=== PATIENT | female | born 1940 | race Caucasian/White ===

== ENCOUNTER → 2018-01-01 11:19 | Outpatient (CLI) | payer MEDICARE, SELFPAY ==
[2018-01-01 13:02] LABS: Add Manual Diff / Slide Review NO; Basophils Percent Auto 1.4 % (0-2); Eosinophils Percent Auto 2.9 % (2-4); Hematocrit 44.9 % (36-46); Hemoglobin 15.3 g/dL (12.0-16.0); Lymphocytes Percent Auto 21.1 % (25-40); Mean Corpuscular Hemoglobin 31.9 PG (26-34); Mean Corpuscular Volume 93.8 fL (80-100); Monocytes Percent Auto 7.4 % (3-14); Neutrophils Absolute Auto 4600 /uL (3000-5900); Neutrophils Percent Auto 67.2 % (50-75); Platelet Count 214 X10^3/uL (150-400); Red Blood Cell Count 4.79 X10^6/uL (4.0-5.2); Red Cell Distribution Width 14.6 % (11.6-14.8); White Blood Cell Count 6.8 X10^3/uL (4.5-11.0)
[2018-01-01 13:10] LABS: Alanine Aminotransferase 23 IU/L (9-52); Albumin Globulin Ratio 1.3 (1.0-2.8); Alkaline Phosphatase 72 U/L (38-126); Aspartate Aminotransferase 22 IU/L (14-36); Bilirubin Total 0.7 mg/dL (0.2-1.3); Blood Urea Nitrogen 22 mg/dL (7-17); Calcium 9.4 mg/dL (8.4-10.2); Carbon Dioxide 29 mmol/L (22-32); Chloride 104 mmol/L (98-107); Cholesterol 98 mg/dL (140-199); Estimated Glomerular Filt Rate 48.2 mL/min (>60); Globulin 3.1 g/dL (1.7-4.1); Glucose 88 mg/dL (80-110); HDL Cholesterol 56 mg/dL (40-60); HEMOLYSIS < 15 (0-50); LDL Cholesterol Calculated 23 mg/dL (<100); Sodium 143 mmol/L (137-145); Total Protein 7.1 g/dL (6.3-8.2); Triglycerides 93 mg/dL (35-150)
[2018-01-01 13:16] LABS: Potassium 5.6 mmol/L (3.4-5.1)
[2018-01-01 13:38] LABS: TSH w/ Reflex to FT4 3.33 uIU/mL (0.47-4.68)
== END ==
PROVIDERS: PCP Family Medicine; Visit Provider Family Medicine
DX: E03.9 Hypothyroidism, unspecified (principal); E87.5 Hyperkalemia; I10 Essential (primary) hypertension; Z13.220 Encounter for screening for lipoid disorders
CPT/HCPCS: 36415; 80053; 80061; 84443; 85025

== ENCOUNTER → 2018-03-04 12:40 | Outpatient (CLI) | payer MEDICARE, SELFPAY ==
[2018-03-04 15:27] LABS: Appearance Urine UA SL CLOUDY; Bilirubin Urine UA NEGATIVE (NEGATIVE); Color Urine UA YELLOW; Glucose Urine UA NEGATIVE (Normal); Ketones Urine UA NEGATIVE (NEGATIVE); Leukocyte Esterase Urine UA 2+ (NEGATIVE); Nitrite Urine UA NEGATIVE (Negative); Occult Blood Urine UA 3+ (Negative); Protein Urine UA NEGATIVE (Negative); Specific Gravity Urine UA 1.025 (1.000-1.035); Urobilinogen Urine UA 0.2 E.U./dL (0.2)
[2018-03-04 15:48] LABS: RBC Urine 1-5/HPF (0-5/HPF); Squamous Epithelial Cell Urine 1-5 /HPF; WBC Urine 30-100/HPF (0-5/HPF)
[2018-03-04 15:49] LABS: Amorphous Sediment Urine 1+; Bacteria Urine Many (>30); Culture Indicated Urine Specimen Cultured; Mucus Urine 1+ (Negative)
== END ==
PROVIDERS: Family Provider Family Medicine; PCP Family Medicine; Visit Provider Urology
DX: N39.0 Urinary tract infection, site not specified (principal)
CPT/HCPCS: 81001; 87077; 87086; 87186

== ENCOUNTER → 2018-03-10 08:44 | Outpatient (CLI) | payer MEDICARE, SELFPAY ==
--- NOTE | 2018-03-10 08:48 | DI.MG.S_ITS ---
BILATERAL DIGITAL SCREENING MAMMOGRAM 3D/2D WITH CAD POST LUMPECTOMY: 03/10/2018 CLINICAL: Routine screening. Personal history of bilateral breast cancer. Comparison is made to exams dated: 11/14/2016 mammogram, 06/07/2015 mammogram, and 04/26/2014 mammogram - [facility]. The tissue of both breasts is heterogeneously dense. This may lower the sensitivity of mammography. Current study was also evaluated with a Computer Aided Detection (CAD) system. There are benign post operative findings in both breasts. There also are benign calcifications in both breasts. No significant masses, calcifications, or other findings are seen in either breast. There has been no significant interval change. IMPRESSION: There is no mammographic evidence of malignancy. A 1 year screening mammogram is recommended. This exam was interpreted at Station ID: [id number]. NOTE: For mammograms, a report in lay terms will be sent to the patient. Approximately 15% of breast malignancies will not be visualized mammographically. In the management of a palpable breast mass, a negative mammogram must not discourage biopsy of a clinically suspicious lesion. Electronically Signed By: Jase montgomery/karley:03/10/2018 20:14:28 copy to: ELIZABETH URBINA letter sent: Normal Exam ACR BI-RADS Category 2: Benign Finding(s) 3342F
== END ==
PROVIDERS: PCP Family Medicine; Visit Provider Family Medicine
DX: Z12.31 Encounter for screening mammogram for malignant neoplasm of breast (principal); Z85.3 Personal history of malignant neoplasm of breast
CPT/HCPCS: 77063; 77067

== ENCOUNTER 2018-06-19 10:13 | Emergency (ER) | payer MEDICARE, SELFPAY ==
[2018-06-19 10:15] VITALS: BP 152/98; PULSE 78; RESP 14; TEMP 36.1; O2SAT 95
--- NOTE | 2018-06-19 10:35 | DI.RAD.S_ITS ---
PROCEDURE: XR HIP W PEL IF DONE RT 2V INDICATIONS: fall yesterday, directly unto bottom TECHNIQUE: AP pelvis with lateral view(s) of the right hip(s). COMPARISON: None. FINDINGS: Bones: No fractures or dislocations. Pelvic ring appears intact. No suspicious bony lesions. Soft tissues: The visualized bowel gas pattern is normal. No suspicious soft tissue calcifications. IMPRESSION: No fracture or dislocation. If clinical symptoms persist or clinical suspicion for pathology is high, advanced imaging such as CT or MRI is suggested for further evaluation. Dictated by: Chelle Nagy M.D. on 06/19/2018 at 11:22 Approved by: Chelle Nagy M.D. on 06/19/2018 at 11:29
--- NOTE | 2018-06-19 10:37 | ED.FALL ---
HPI - Fall General Chief Complaint: Fall Stated Complaint: fell, may have broke something Time Seen by Provider: 06/19/18 10:35 Source: patient and family ( ) Mode of arrival: wheelchair History of Present Illness HPI Narrative: this is a 70-year-old female comes to emergency department with complaint of fall yesterday evening. Patient states she was taking bunch of close, she feels like she tripped on a piece of clothing and fell backwards on her buttocks and slid down the stairs about 4 stairs to the landing. Patient states she sat there for about 30 min she had pain in her low back and a little bit more on the right than the left. She was unable to get up after some time. She continues to pain particularly with movement. She is most comfortable lying reclined in her recliner but getting up trying to get in and out of bed, trying to get to a standing or sitting position or from lying to standing is quite painful and difficult. She took Tylenol her last dose was at 4:00 a.m. ago she continues to have pain. She is concerned she may have injured something. She does take Pradaxa denies hitting her head, denies any neck or upper back pain. She denies any pain radiating into her legs, no numbness or tingling. She has chronic urinary incontinence. She sees Urology for this. She denies any chest pain or shortness of breath no nausea no vomiting no other GI symptoms. She has not had any fecal incontinence. MD complaint: fall Related Data Home Medications Medication Instructions Recorded Confirmed multivitamin with minerals 1 tab PO DAILY #0 11/30/07 06/19/18 acetaminophen 500 mg capsule 500 mg PO Q4-6H PRN 01/12/18 06/19/18 turmeric root extract 500 mg 500 mg PO DAILY 01/12/18 06/19/18 capsule Manuka Honey 550 ea PO BID 06/19/18 06/19/18 citalopram [Celexa] 40 mg PO QPM 06/19/18 06/19/18 dabigatran etexilate [Pradaxa] 150 mg PO QPM 06/19/18 06/19/18 gabapentin [Neurontin] 1 dose PO SEE INSTRUCTIONS 06/19/18 06/19/18 levothyroxine 88 mcg PO DAILY 06/19/18 06/19/18 lorazepam 1 mg PO BEDTIME 06/19/18 06/19/18 metoprolol succinate [Toprol XL] 50 mg PO DAILY 06/19/18 06/19/18 nitrofurantoin macrocrystal 50 mg PO DAILY 06/19/18 06/19/18 Previous Rx's Medication Instructions Recorded nitrofurantoin monohyd/m-cryst 100 mg PO Q12H #10 cap 06/19/18 [Macrobid] oxycodone 5 mg PO Q4-6H PRN #20 tab 06/19/18 Allergies Allergy/AdvReac Type Severity Reaction Status Date / Time bacitracin [BACITRACIN] Allergy Mild HIVES Verified 01/12/18 13:46 ciprofloxacin [CIPROFLOXACIN] Allergy Mild JOINT PAIN Verified 01/12/18 13:46 neomycin [NEOMYCIN] Allergy Mild HIVES Verified 01/12/18 13:46 polymyxin B [POLYMYXIN B] Allergy Mild HIVES Verified 01/12/18 13:46 tramadol [TRAMADOL] AdvReac Intermediate sweaty, Verified 01/12/18 13:46 hot and nauseous Review of Systems Review of Systems ROS Unobtainable: All systems reviewed & are unremarkable except as noted in HPI and below Constitutional Denies chills, Denies fever(s), Denies lethargy, Denies weakness and Denies other (head injury) ENT Ears, Nose, Mouth, and Throat: Denies neck pain Cardiovascular Denies chest pain, Denies irregular heart rhythm, Denies lightheadedness, Denies palpitations, Denies dyspnea, Denies dyspnea on exertion and Denies orthopnea Respiratory Denies cough, Denies pain on inspiration, Denies pain with cough, Denies dyspnea, Denies dyspnea on exertion and Denies wheezing Gastrointestinal Gastrointestinal: Denies abdominal pain, Denies change in bowel habits, Denies diarrhea, Denies nausea and Denies vomiting Genitourinary Denies urinary frequency, Denies difficulty voiding, Denies dysuria, Reports urinary incontinence (chronic), Denies urinary hesitancy and Denies urinary urgency Musculoskeletal Reports as per HPI, Reports back pain, Reports arthralgias (right hip, mild), Reports limited range of motion, Denies neck pain, Denies numbness, Denies radiating pain into limb and Denies tingling Integumentary/Breasts Denies erythema and Denies unusual bruising Neurologic Denies numbness, Denies tingling and Denies weakness Endocrine Denies palpitations Allergic/Immunologic Denies wheezing Exam Narrative Exam Narrative: GEN: Patient appears in moderate distress. HEAD: No evidence of trauma, no raccoon/Laws sign. NECK: Nontender, painless range of motion, trachea midline NegativeNexus criteria, no mid-line tenderness, distracting injury, altered mental status, neuro deficit, recent EtOH. EYES: PERRLA, EOMI ENT: External inspection normal, trachea is midline RESP: Chest is nontender and has symmetric movement, no ecchymosis, breath sounds are normal no crackles, wheezes or rales CVS: Heart sounds are normal, no murmur noted, No JVD. ABG/GI: Nontender, soft, normal bowel sounds, no distention, no organomegaly, pelvic rock is negative. Hernia right upper abdomen and lower abdomen, easily reducible but immediately returns. GENIT, RECTAL: Normal external inspection, normal rectal tone, [prostate is in normal position or no vaginal bleeding] NEURO: Oriented AOx3, neuro is grossly intact, sensation and motor is normal all 4 extremities moving, cranial nerves II through XII are intact, GCS is 15 PSYCH: Normal mood and affect SKIN: Intact, warm and dry, no crepitus and without decubitus BACK: No CVA tenderness, no vertebral tenderness, unable to reproduce pain with palpation, no step-off's, no crepitus EXT: Atraumatic, hips right SI/hip mildly tendern to pain, no pedal edema, normal color and temperature, normal range of motion of extremities with normal tendon exam, 2+ pulses in all four extremities, patient is able to weightbare. 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 Social History Smoking Status: Never smoker Family History Mother Mental health problem Depression Alzheimer's disease Brother Diabetes mellitus Father Lung cancer Sister Brain cancer Family/Other Bipolar disorder Grandmother No problems noted. Social History marital status: household members: spouse lives independently: Yes Smoking Status: Never smoker Scores GCS [place] coma scale eye opening: Spontaneous Sonya coma scale verbal response: Orientated Sonya coma scale motor response: Obey commands [place] coma scale total score: 15 Course Orders Ordered: ED Orders 06/19/18 10:35 XR hip w pel if done RT 2V Stat 06/19/18 10:40 CT lumbar spine wo con Stat 06/19/18 11:07 Basic Metabolic Panel Stat Complete Blood Count AUTO DIFF Stat 06/19/18 11:40 MR lumbar spine wo con Stat 06/19/18 12:56 Urine Culture Stat Urine Microscopic Stat Discontinued Medications Hydromorphone HCl (Dilaudid) 0.5 mg IV NOW ONE Stop: 06/19/18 11:50 Last Admin: 06/19/18 11:53 Dose: 0.5 mg Oxycodone/Acetaminophen (Percocet 5/325) 2 tab PO NOW ONE Stop: 06/19/18 10:36 Last Admin: 06/19/18 10:58 Dose: 2 tab Vital Signs - 8 hr 06/19/18 10:15 Temperature 97 F L Pulse Rate 78 Respiratory Rate 14 Blood Pressure 152/98 H Pulse Oximetry 95 MDM - Fall Lab Data Attestation: I reviewed the patient's lab results. Result diagrams: 06/19/18 11:07 03/15/19 11:07 Lab Results 06/19/18 06/19/18 06/19/18 Range/Units 11:07 11:07 12:56 WBC 9.2 (4.5-11.0) X10^3/uL RBC 4.70 (4.0-5.2) X10^6/uL Hgb 14.8 (12.0-16.0) g/dL Hct 44.5 (36-46) % MCV 94.5 (80-100) fL MCH 31.6 (26-34) PG MCHC 33.4 (30-36) % RDW 14.9 H (11.6-14.8) % Plt Count 182 (150-400) X10^3/uL Neut % (Auto) 84.9 H (50-75) % Lymph % (Auto) 6.5 L (25-40) % Roberts % (Auto) 5.0 (3-14) % Eos % (Auto) 2.5 (2-4) % Baso % (Auto) 1.1 (0-2) % Neut # (Auto) 7800 H (9193-6552) /uL Lymph # (Auto) 600 L (1708-7153) /uL Roberts # (Auto) 500 (0-900) /uL Eos # (Auto) 200 (0-450) /uL Baso # (Auto) 100 (0-100) /uL Sodium 138 (137-145) mmol/L Potassium 4.6 (3.4-5.1) mmol/L Chloride 104 (98-107) mmol/L Carbon Dioxide 25 (22-32) mmol/L BUN 18 H (7-17) mg/dL Creatinine 0.90 (0.52-1.04) mg/dL Estimated GFR > 60.0 (>60) mL/min BUN/Creatinine Ratio 20.0 (6-22) Glucose 102 (80-110) mg/dL Calcium 9.1 (8.4-10.2) mg/dL Urine RBC 10-30/hpf H (0-5/HPF) Urine WBC 10-30/hpf H (0-5/HPF) Urine Bacteria Many (>30) H (None) Ur Culture Indicated? Specimen cultured Urine Dip Bedside Urine Glucose Negative Bedside Urine Bilirubin - Negative Bedside Urine Ketone - Negative Urine Specific [place] 1.025 Bedside Urine Occult Blood +++ Bedside Urine pH 5.5 Bedside Urine Protein + 30 Bedside Urine Urobilinogen - Negative Bedside Urine Nitrite + Positive Bedside Urine Leukocytes +++ [address] Lspine: Radiologist's impression: [address] [address] [address] Scan Report Signed Patient: Riley Torres#: [id number] : 1940Acct:[id number] Age/Sex: 78 / FDate of Service: 06/19/18 Loc: ED Accession Number: [id number] Procedure: CT lumbar spine wo con Ordering Provider: Alyson Hurt D.O. PROCEDURE: CT LUMBAR SPINE WO CON INDICATIONS: fall, low back pain, right hip pain TECHNIQUE: Noncontrast 3 mm thick sections acquired from the T12 level to the sacrum. Sagittal and coronal reformats were constructed. For radiation dose reduction, the following was used: automated exposure control. COMPARISON: None. FINDINGS: Image quality: Excellent. Bones: There is normal bony alignment. Acute appearing L2 compression fracture noted. L2 compression fracture results in approximately 25% loss of normal vertebral body height. No retropulsed fragments or kyphosis associated with the L2 compression fracture. No suspicious lytic or blastic bony lesions. Multilevel degenerative disc disease and facet arthropathy are noted. No pars defects. Soft tissues: No retroperitoneal masses or hematomas. Visualized aorta is normal in caliber. IMPRESSION: 1. Acute L2 compression fracture. 2. Multilevel degenerative disc disease and facet arthropathy. If there is continued clinical concern for pathology including nerve root impingement, MRI of the lumbar spine should be considered for further evaluation. Dictated by: Jessica Peralta MD, PhD on 06/19/2018 at 10:59 Approved by: Jessica Peralta MD, PhD on 06/19/2018 at 11:10 Hip xray: Radiologist's impression: [address] [address] XRay Report Signed Patient: Riley Torres#: [id number] : 1940Acct:[id number] Age/Sex: 78 / FDate of Service: 06/19/18 Loc: ED Accession Number: [id number] Procedure: XR hip w pel if done RT 2V Ordering Provider: Alyson Hurt D.O. PROCEDURE: XR HIP W PEL IF DONE RT 2V INDICATIONS: fall yesterday, directly unto bottom TECHNIQUE: AP pelvis with lateral view(s) of the right hip(s). COMPARISON: None. FINDINGS: Bones: No fractures or dislocations. Pelvic ring appears intact. No suspicious bony lesions. Soft tissues: The visualized bowel gas pattern is normal. No suspicious soft tissue calcifications. IMPRESSION: No fracture or dislocation. If clinical symptoms persist or clinical suspicion for pathology is high, advanced imaging such as CT or MRI is suggested for further evaluation. Dictated by: Chelle Nagy M.D. on 06/19/2018 at 11:22 Approved by: Chelle Nagy M.D. on 06/19/2018 at 11:29 lspine MRI: Radiologist's impression: [facility] DATE TYPE STATUS AUTHOR Hx 06/19/18 11:40 Jessica Peralta 06/19/18 10:40 Jessica Peralta 06/19/18 10:35 Jonny Nagy 03/10/18 08:48 Jase Matthews Hilda 78, 1940 REG ER, ED.LOC - Main ED: R06 Fall Search Chart NF - Not included in interaction checking HIVES JOINT PAIN HIVES HIVES sweaty, hot and nauseous ONSET 10/19/10 10/19/10 10/19/10 05/09/14 05/09/14 05/09/14 05/09/14 06/10/14 06/10/14 04/05/16 01/29/17 01/29/17 01/29/17 Today 10:15 Jessenia Torres 78 F 1940 [place] [address] Magnetic Resonance Report Signed Patient: Riley Torres#: [id number] : 1940Acct:[id number] Age/Sex: 78 / FDate of Service: 06/19/18 Loc: ED Accession Number: [id number] Procedure: MR lumbar spine wo con Ordering Provider: Alyson Hurt D.O. PROCEDURE: MR LUMBAR SPINE WO CON INDICATIONS: L2 compression fx. hx urinary incontinence, maybe worse TECHNIQUE: Noncontrast sagittal T1 spin echo and T2 fast echo, sagittal STIR, axial T1 and T2 fast spin echo through the lumbar spine. In cases with scoliosis, additional coronal T2 fast spin echo may be performed. COMPARISON: None. FINDINGS: Image quality: Excellent. Alignment and Curvature: There is normal bony alignment and curvature. Bone Marrow: Loss of height noted in the L2 vertebral body compatible with known compression fracture. There is increased T2 signal in marrow space the L2 vertebral body indicating compression fracture is acute/subacute. L2 compression fracture results in approximately 25% loss of normal anterior vertebral body height. No kyphosis or retropulsion fragments are associated with the L2 compression fracture. Spinal Cord: Conus medullaris terminates at the T12-L1 disc level. Visualized cord demonstrates normal signal and size. Paraspinous Soft Tissues: No paravertebral masses. L1-L2: Loss of disc signal. Mild diffuse disc bulge and mild bilateral facet hypertrophy. Mild to moderate narrowing of the central canal. Mild right and moderate left neural foraminal narrowing. No neural impingement. L2-L3: Loss of disc signal. Mild, diffuse disc bulge. Moderate bilateral facet hypertrophy. Moderate ligamentum flavum hypertrophy. Moderate narrowing of the central canal. Mild bilateral neural foraminal narrowing. No neural impingement. L3-L4: Loss of the signal. Minimal, diffuse disc bulge. [id number] facet hypertrophy. Moderate ligamentum flavum hypertrophy. Moderate narrowing of the central canal. Moderate bilateral neural foraminal narrowing. No neural impingement. L4-L5: Loss of the signal. Mild to moderate bilateral facet hypertrophy. Moderate narrowing of the central canal. Moderate to severe right and moderate left neural foraminal narrowing slight flattened deformity exiting right L4 nerve root. L5-S1: Loss of the signal. Mild, diffuse disc bulge. Mild bilateral facet hypertrophy. Mild central canal. Moderate right and mild left neural foraminal narrowing. No neural impingement. IMPRESSION: 1. Acute L2 compression fracture. 2. Multilevel degenerative disease. 3. Multilevel facet arthropathy. 4. Moderate L2-L3, L3-L4 and L4-L5 central canal narrowing. Mild to moderate L1-L2 central canal narrowing. Mild L5-S1 central. 5. Moderate to severe right and moderate left L4-L5 neural foraminal narrowing. Moderate bilateral L3-L4 neural foraminal narrowing. Moderate right and mild left L5-S1 neural foraminal narrowing. Mild right and moderate left L1-L2 neural foraminal narrowing. Mild bilateral L2-L3 neuroforaminal narrowing. Dictated by: Jessica Peralta MD, PhD on 06/19/2018 at 12:51 Approved by: Jessica Peralta MD, PhD on 06/19/2018 at 13:01 [facility] Narrative Medical decision making narrative: Patient comes with complaint back pain. She has had chronic urinary incontinence but it has been worse recently. Patient does not have any bony tenderness but with her discomfort CT L-spine was ordered which showed an L2 compression fracture. With patient's recent urinary incontinence is a little bit difficult to be able to evaluate if she has any spinal cord or nerve impingement so MRI was ordered. She has some stenosis [id number]. patient also has some moderate to severe neuroforaminal narrowing L4-L5 as well as moderate L3-L4 and mild to moderate L1-L2. Patient has not had chronic back issues or weakness or numbness in her extremities, no saddle anesthesia or similar symptoms in the past so my suspicion that this is the cause her issues with a positive urine for nitrates and leukocyte esterase is less likely. Discussed with patient plan to treat her for UTI with Macrobid which she states she has responded to well in past have her follow up Friday with her primary care patient did have some improvement with Percocet with so we discussed trying oxycodone so she can take it a little bit more frequently if needed as she states she has had some issues with tolerance in the past but may also max out on her Tylenol. Patient's pain here has been much improved. Discharge Plan Departure Patient Disposition: Home Clinical Impression: Closed compression fracture of L2 vertebra, Acute UTI Discharge Date/Time: 06/19/18 14:10 Interventions: ED Discharge Assessment Last Done: 06/19/18 14:09 Instructions: How to Prevent Falls Activity Restrictions/Additional Instructions: Follow up with Dr. Ramos, call for an appointment for Friday morning. continue home medications as prescribed. Take Macrobid twice daily until gone. Take oxycodone you may take 1-2 tablets every 4-6 hours as needed for back pain. You may also take Tylenol up to a 1000 mg every 8 hr or 3000 mg total any 24 hr. Take a stool softener each time you take your pain medication to prevent constipation. Return to the emergency department for fevers greater than 100.4, rapidly worsening back pain, stool incontinence, worsening urinary incontinence, new weakness, numbness or pain radiating down her legs or other new or concerning symptoms. Prescriptions: New oxycodone 5 mg tablet 5 mg PO Q4-6H PRN (Reason: pain) Qty: 20 RF: 0 nitrofurantoin monohyd/m-cryst [Macrobid] 100 mg capsule 100 mg PO Q12H Qty: 10 RF: 0 No Action multivitamin with minerals Tablet 1 tab PO DAILY Qty: 0 RF: 0 turmeric root extract 500 mg capsule 500 mg PO DAILY RF: 0 acetaminophen 500 mg capsule 500 mg PO Q4-6H PRN (Reason: PAIN) RF: 0 nitrofurantoin macrocrystal 50 mg capsule 50 mg PO DAILY RF: 0 levothyroxine 88 mcg tablet 88 mcg PO DAILY RF: 0 Pradaxa 150 mg capsule 150 mg PO QPM RF: 0 citalopram [Celexa] 40 mg tablet 40 mg PO QPM RF: 0 metoprolol succinate [Toprol XL] 50 mg tablet extended release 24 hr 50 mg PO DAILY RF: 0 lorazepam 1 mg tablet 1 mg PO BEDTIME RF: 0 Manuka Honey 550 ea PO BID RF: 0 gabapentin [Neurontin] 300 mg capsule 1 dose PO SEE INSTRUCTIONS RF: 0 Referrals: Delon Heck MD [Physician] - Renetta Ramos DO [Primary Care Provider] -
--- NOTE | 2018-06-19 10:41 | ED_ITS ---
HPI - Fall General Chief Complaint: Fall Stated Complaint: fell, may have broke something Time Seen by Provider: 06/19/18 10:35 Source: patient and family ( ) Mode of arrival: wheelchair History of Present Illness HPI Narrative: this is a 70-year-old female comes to emergency department with complaint of fall yesterday evening. Patient states she was taking bunch of close, she feels like she tripped on a piece of clothing and fell backwards on her buttocks and slid down the stairs about 4 stairs to the landing. Patient states she sat there for about 30 min she had pain in her low back and a little bit more on the right than the left. She was unable to get up after some time. She continues to pain particularly with movement. She is most comfortable lying reclined in her recliner but getting up trying to get in and out of bed, trying to get to a standing or sitting position or from lying to standing is quite painful and difficult. She took Tylenol her last dose was at 4:00 a.m. ago she continues to have pain. She is concerned she may have injured something. She does take Pradaxa denies hitting her head, denies any neck or upper back pain. She denies any pain radiating into her legs, no numbness or tingling. She has chronic urinary incontinence. She sees Urology for this. She denies any chest pain or shortness of breath no nausea no vomiting no other GI symptoms. She has not had any fecal incontinence. MD complaint: fall Related Data Home Medications Medication Instructions Recorded Confirmed multivitamin with minerals 1 tab PO DAILY #0 11/30/07 06/19/18 acetaminophen 500 mg capsule 500 mg PO Q4-6H PRN 01/12/18 06/19/18 turmeric root extract 500 mg 500 mg PO DAILY 01/12/18 06/19/18 capsule Manuka Honey 550 ea PO BID 06/19/18 06/19/18 citalopram [Celexa] 40 mg PO QPM 06/19/18 06/19/18 dabigatran etexilate [Pradaxa] 150 mg PO QPM 06/19/18 06/19/18 gabapentin [Neurontin] 1 dose PO SEE INSTRUCTIONS 06/19/18 06/19/18 levothyroxine 88 mcg PO DAILY 06/19/18 06/19/18 lorazepam 1 mg PO BEDTIME 06/19/18 06/19/18 metoprolol succinate [Toprol XL] 50 mg PO DAILY 06/19/18 06/19/18 nitrofurantoin macrocrystal 50 mg PO DAILY 06/19/18 06/19/18 Previous Rx's Medication Instructions Recorded nitrofurantoin monohyd/m-cryst 100 mg PO Q12H #10 cap 06/19/18 [Macrobid] oxycodone 5 mg PO Q4-6H PRN #20 tab 06/19/18 Allergies Allergy/AdvReac Type Severity Reaction Status Date / Time bacitracin [BACITRACIN] Allergy Mild HIVES Verified 01/12/18 13:46 ciprofloxacin [CIPROFLOXACIN] Allergy Mild JOINT PAIN Verified 01/12/18 13:46 neomycin [NEOMYCIN] Allergy Mild HIVES Verified 01/12/18 13:46 polymyxin B [POLYMYXIN B] Allergy Mild HIVES Verified 01/12/18 13:46 tramadol [TRAMADOL] AdvReac Intermediate sweaty, Verified 01/12/18 13:46 hot and nauseous Review of Systems Review of Systems ROS Unobtainable: All systems reviewed & are unremarkable except as noted in HPI and below Constitutional Denies chills, Denies fever(s), Denies lethargy, Denies weakness and Denies other (head injury) ENT Ears, Nose, Mouth, and Throat: Denies neck pain Cardiovascular Denies chest pain, Denies irregular heart rhythm, Denies lightheadedness, Denies palpitations, Denies dyspnea, Denies dyspnea on exertion and Denies orthopnea Respiratory Denies cough, Denies pain on inspiration, Denies pain with cough, Denies dyspnea, Denies dyspnea on exertion and Denies wheezing Gastrointestinal Gastrointestinal: Denies abdominal pain, Denies change in bowel habits, Denies diarrhea, Denies nausea and Denies vomiting Genitourinary Denies urinary frequency, Denies difficulty voiding, Denies dysuria, Reports urinary incontinence (chronic), Denies urinary hesitancy and Denies urinary urgency Musculoskeletal Reports as per HPI, Reports back pain, Reports arthralgias (right hip, mild), Reports limited range of motion, Denies neck pain, Denies numbness, Denies radiating pain into limb and Denies tingling Integumentary/Breasts Denies erythema and Denies unusual bruising Neurologic Denies numbness, Denies tingling and Denies weakness Endocrine Denies palpitations Allergic/Immunologic Denies wheezing Exam Narrative Exam Narrative: GEN: Patient appears in moderate distress. HEAD: No evidence of trauma, no raccoon/Laws sign. NECK: Nontender, painless range of motion, trachea midline NegativeNexus criteria, no mid-line tenderness, distracting injury, altered mental status, neuro deficit, recent EtOH. EYES: PERRLA, EOMI ENT: External inspection normal, trachea is midline RESP: Chest is nontender and has symmetric movement, no ecchymosis, breath sounds are normal no crackles, wheezes or rales CVS: Heart sounds are normal, no murmur noted, No JVD. ABG/GI: Nontender, soft, normal bowel sounds, no distention, no organomegaly, pelvic rock is negative. Hernia right upper abdomen and lower abdomen, easily reducible but immediately returns. GENIT, RECTAL: Normal external inspection, normal rectal tone, [prostate is in normal position or no vaginal bleeding] NEURO: Oriented AOx3, neuro is grossly intact, sensation and motor is normal all 4 extremities moving, cranial nerves II through XII are intact, GCS is 15 PSYCH: Normal mood and affect SKIN: Intact, warm and dry, no crepitus and without decubitus BACK: No CVA tenderness, no vertebral tenderness, unable to reproduce pain with palpation, no step-off's, no crepitus EXT: Atraumatic, hips right SI/hip mildly tendern to pain, no pedal edema, normal color and temperature, normal range of motion of extremities with normal tendon exam, 2+ pulses in all four extremities, patient is able to weightbare. 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 Social History Smoking Status: Never smoker Family History Mother Mental health problem Depression Alzheimer's disease Brother Diabetes mellitus Father Lung cancer Sister Brain cancer Family/Other Bipolar disorder Grandmother No problems noted. Social History marital status: household members: spouse lives independently: Yes Smoking Status: Never smoker Scores GCS [place] coma scale eye opening: Spontaneous Sonya coma scale verbal response: Orientated Sonya coma scale motor response: Obey commands [place] coma scale total score: 15 Course Orders Ordered: ED Orders 06/19/18 10:35 XR hip w pel if done RT 2V Stat 06/19/18 10:40 CT lumbar spine wo con Stat 06/19/18 11:07 Basic Metabolic Panel Stat Complete Blood Count AUTO DIFF Stat 06/19/18 11:40 MR lumbar spine wo con Stat 06/19/18 12:56 Urine Culture Stat Urine Microscopic Stat Discontinued Medications Hydromorphone HCl (Dilaudid) 0.5 mg IV NOW ONE Stop: 06/19/18 11:50 Last Admin: 06/19/18 11:53 Dose: 0.5 mg Oxycodone/Acetaminophen (Percocet 5/325) 2 tab PO NOW ONE Stop: 06/19/18 10:36 Last Admin: 06/19/18 10:58 Dose: 2 tab Vital Signs - 8 hr 06/19/18 10:15 Temperature 97 F L Pulse Rate 78 Respiratory Rate 14 Blood Pressure 152/98 H Pulse Oximetry 95 MDM - Fall Lab Data Attestation: I reviewed the patient's lab results. Result diagrams: 06/19/18 11:07 03/15/19 11:07 Lab Results 06/19/18 06/19/18 06/19/18 Range/Units 11:07 11:07 12:56 WBC 9.2 (4.5-11.0) X10^3/uL RBC 4.70 (4.0-5.2) X10^6/uL Hgb 14.8 (12.0-16.0) g/dL Hct 44.5 (36-46) % MCV 94.5 (80-100) fL MCH 31.6 (26-34) PG MCHC 33.4 (30-36) % RDW 14.9 H (11.6-14.8) % Plt Count 182 (150-400) X10^3/uL Neut % (Auto) 84.9 H (50-75) % Lymph % (Auto) 6.5 L (25-40) % [place] % (Auto) 5.0 (3-14) % Eos % (Auto) 2.5 (2-4) % Baso % (Auto) 1.1 (0-2) % Neut # (Auto) 7800 H (5873-5225) /uL Lymph # (Auto) 600 L (2836-0423) /uL [place] # (Auto) 500 (0-900) /uL Eos # (Auto) 200 (0-450) /uL Baso # (Auto) 100 (0-100) /uL Sodium 138 (137-145) mmol/L Potassium 4.6 (3.4-5.1) mmol/L Chloride 104 (98-107) mmol/L Carbon Dioxide 25 (22-32) mmol/L BUN 18 H (7-17) mg/dL Creatinine 0.90 (0.52-1.04) mg/dL Estimated GFR > 60.0 (>60) mL/min BUN/Creatinine Ratio 20.0 (6-22) Glucose 102 (80-110) mg/dL Calcium 9.1 (8.4-10.2) mg/dL Urine RBC 10-30/hpf H (0-5/HPF) Urine WBC 10-30/hpf H (0-5/HPF) Urine Bacteria Many (>30) H (None) Ur Culture Indicated? Specimen cultured Urine Dip Bedside Urine Glucose Negative Bedside Urine Bilirubin - Negative Bedside Urine Ketone - Negative Urine Specific [place] 1.025 Bedside Urine Occult Blood +++ Bedside Urine pH 5.5 Bedside Urine Protein + 30 Bedside Urine Urobilinogen - Negative Bedside Urine Nitrite + Positive Bedside Urine Leukocytes +++ [address] Lspine: Radiologist's impression: [address] [address] [address] Scan Report Signed Patient: Riley Torres#: [id number] : 1940Acct:[id number] Age/Sex: 78 / FDate of Service: 06/19/18 Loc: ED Accession Number: [id number] Procedure: CT lumbar spine wo con Ordering Provider: Alyson Hurt D.O. PROCEDURE: CT LUMBAR SPINE WO CON INDICATIONS: fall, low back pain, right hip pain TECHNIQUE: Noncontrast 3 mm thick sections acquired from the T12 level to the sacrum. Sagittal and coronal reformats were constructed. For radiation dose reduction, the following was used: automated exposure control. COMPARISON: None. FINDINGS: Image quality: Excellent. Bones: There is normal bony alignment. Acute appearing L2 compression fracture noted. L2 compression fracture results in approximately 25% loss of normal vertebral body height. No retropulsed fragments or kyphosis associated with the L2 compression fracture. No suspicious lytic or blastic bony lesions. Multilevel degenerative disc disease and facet arthropathy are noted. No pars defects. Soft tissues: No retroperitoneal masses or hematomas. Visualized aorta is normal in caliber. IMPRESSION: 1. Acute L2 compression fracture. 2. Multilevel degenerative disc disease and facet arthropathy. If there is continued clinical concern for pathology including nerve root impingement, MRI of the lum bar spine should be considered for further evaluation. Dictated by: Jessica Peralta MD, PhD on 06/19/2018 at 10:59 Approved by: Jessica Peralta MD, PhD on 06/19/2018 at 11:10 Hip xray: Radiologist's impression: [address] [address] XRay Report Signed Patient: Riley Torres#: [id number] : 1940Acct:[id number] Age/Sex: 78 / FDate of Service: 06/19/18 Loc: ED Accession Number: [id number] Procedure: XR hip w pel if done RT 2V Ordering Provider: Alyson Hurt D.O. PROCEDURE: XR HIP W PEL IF DONE RT 2V INDICATIONS: fall yesterday, directly unto bottom TECHNIQUE: AP pelvis with lateral view(s) of the right hip(s). COMPARISON: None. FINDINGS: Bones: No fractures or dislocations. Pelvic ring appears intact. No suspicious bony lesions. Soft tissues: The visualized bowel gas pattern is normal. No suspicious soft tissue calcifications. IMPRESSION: No fracture or dislocation. If clinical symptoms persist or cl inical suspicion for pathology is high, advanced imaging such as CT or MRI is suggested for further evaluation. Dictated by: Chelle Nagy M.D. on 06/19/2018 at 11:22 Approved by: Chelle Nagy M.D. on 06/19/2018 at 11:29 lspine MRI: Radiologist's impression: [facility] DATE TYPE STATUS AUTHOR Hx 06/19/18 11:40 Jessica Peralta 06/19/18 10:40 Jessica Peralta 06/19/18 10:35 Jonny Nagy 03/10/18 08:48 Jase Matthews Hilda 78, 1940 REG ER, ED.LOC - Main ED: R06 Fall Search Chart NF - Not included in interaction checking HIVES JOINT PAIN HIVES HIVES sweaty, hot and nauseous ONSET 10/19/10 10/19/10 10/19/10 05/09/14 05/09/14 05/09/14 05/09/14 06/10/14 06/10/14 04/05/16 01/29/17 01/29/17 01/29/17 Today 10:15 Jessenia Torres 78 F [address] [address] Magnetic Resonance Report Signed Patient: Riley Torres#: [id number] : 1940Acct:[id number] Age/Sex: 78 / FDate of Service: 06/19/18 Loc: ED Accession Number: [id number] Procedure: MR lumbar spine wo con Ordering Provider: Alyson Hurt D.O. PROCEDURE: MR LUMBAR SPINE WO CON INDICATIONS: L2 compression fx. hx urinary incontinence, maybe worse TECHNIQUE: Noncontrast sagittal T1 spin echo and T2 fast echo, sagittal STIR, axial T1 and T2 fast spin echo through the lumbar spine. In cases with scoliosis, additional coronal T2 fast spin echo may be performed. COMPARISON: None. FINDINGS: Image quality: Excellent. Alignment and Curvature: There is normal bony alignment and curvature. Bone Marrow: Loss of height noted in the L2 vertebral body compatible with known compression fracture. There is increased T2 signal in marrow space the L2 vertebral body indicating compression fracture is acute/subacute. L2 compression fracture results in approximately 25% loss of normal anterior vertebral body height. No kyphosis or retropulsion fragments are associated with the L2 compression fracture. Spinal Cord: Conus medullaris terminates at the T12-L1 disc level. Visualized cord demonstrates normal signal and size. Paraspinous Soft Tissues: No paravertebral masses. L1-L2: Loss of disc signal. Mild diffuse disc bulge and mild bilateral facet hypertrophy. Mild to moderate narrowing of the central canal. Mild right and moderate left neural foraminal narrowing. No neural impingement. L2-L3: Loss of disc signal. Mild, diffuse disc bulge. Moderate bilateral facet hypertrophy. Moderate ligamentum flavum hypertrophy. Moderate narrowing of the central canal. Mild bilateral neural foraminal narrowing. No neural impingement. L3-L4: Loss of the signal. Minimal, diffuse disc bulge. Bzivadgx-rd-yelcxn facet hypertrophy. Moderate ligamentum flavum hypertrophy. Moderate narrowing of the central canal. Moderate bilateral neural foraminal narrowing. No neural impingement. L4-L5: Loss of the signal. Mild to moderate bilateral facet hypertrophy. Moderate narrowing of the central canal. Moderate to severe right and moderate left neural foraminal narrowing slight flattened deformity exiting right L4 nerve root. L5-S1: Loss of the signal. Mild, diffuse disc bulge. Mild bilateral facet hypertrophy. Mild central canal. Moderate right and mild left neural foraminal narrowing. No neural impingement. IMPRESSION: 1. Acute L2 compression fracture. 2. Multilevel degenerative disease. 3. Multilevel facet arthropathy. 4. Moderate L2-L3, L3-L4 and L4-L5 central canal narrowing. Mild to moderate L1- L2 central canal narrowing. Mild L5-S1 central. 5. Moderate to severe right and moderate left L4-L5 neural foraminal narrowing. Moderate bilateral L3-L4 neural foraminal narrowing. Moderate right and mild left L5-S1 neural foraminal narrowing. Mild right and moderate left L1-L2 neural foraminal narrowing. Mild bilateral L2-L3 neuroforaminal narrowing. Dictated by: Jessica Peralta MD, PhD on 06/19/2018 at 12:51 Approved by: Jessica Peralta MD, PhD on 06/19/2018 at 13:01 [facility] Narrative Medical decision making narrative: Patient comes with complaint back pain. She has had chronic urinary incontinence but it has been worse recently. Patient does not have any bony tenderness but with her discomfort CT L-spine was ordered which showed an L2 compression fracture. With patient's recent urinary incontinence is a little bit difficult to be able to evaluate if she has any spinal cord or nerve impingement so MRI was ordered. She has some stenosis [id number]. patient also has some moderate to severe neuroforaminal narrowing L4-L5 as well as moderate L3-L4 and mild to moderate L1-L2. Patient has not had chronic back issues or weakness or numbness in her extremities, no saddle anesthesia or similar symptoms in the past so my suspicion that this is the cause her issues with a positive urine for nitrates and leukocyte esterase is less likely. Discussed with patient plan to treat her for UTI with Macrobid which she states she has responded to well in past have her follow up Friday with her primary care patient did have some improvement with Percocet with so we discussed trying oxycodone so she can take it a little bit more frequently if needed as she states she has had some issues with tolerance in the past but may also max out on her Tylenol. Patient's pain here has been much improved. Discharge Plan Departure Patient Disposition: Home Clinical Impression: Closed compression fracture of L2 vertebra, Acute UTI Discharge Date/Time: 06/19/18 14:10 Interventions: ED Discharge Assessment Last Done: 06/19/18 14:09 Instructions: How to Prevent Falls Activity Restrictions/Additional Instructions: Follow up with Dr. Ramos, call for an appointment for Friday morning. continue home medications as prescribed. Take Macrobid twice daily until gone. Take oxycodone you may take 1-2 tablets every 4-6 hours as needed for back pain. You may also take Tylenol up to a 1000 mg every 8 hr or 3000 mg total any 24 hr. Take a stool softener each time you take your pain medication to prevent constipation. Return to the emergency department for fevers greater than 100.4, rapidly worsening back pain, stool incontinence, worsening urinary incontinence, new weakness, numbness or pain radiating down her legs or other new or concerning symptoms. Prescriptions: New oxycodone 5 mg tablet 5 mg PO Q4-6H PRN (Reason: pain) Qty: 20 RF: 0 nitrofurantoin monohyd/m-cryst [Macrobid] 100 mg capsule 100 mg PO Q12H Qty: 10 RF: 0 No Action multivitamin with minerals Tablet 1 tab PO DAILY Qty: 0 RF: 0 turmeric root extract 500 mg capsule 500 mg PO DAILY RF: 0 acetaminophen 500 mg capsule 500 mg PO Q4-6H PRN (Reason: PAIN) RF: 0 nitrofurantoin macrocrystal 50 mg capsule 50 mg PO DAILY RF: 0 levothyroxine 88 mcg tablet 88 mcg PO DAILY RF: 0 Pradaxa 150 mg capsule 150 mg PO QPM RF: 0 citalopram [Celexa] 40 mg tablet 40 mg PO QPM RF: 0 metoprolol succinate [Toprol XL] 50 mg tablet extended release 24 hr 50 mg PO DAILY RF: 0 lorazepam 1 mg tablet 1 mg PO BEDTIME RF: 0 Manuka Honey 550 ea PO BID RF: 0 gabapentin [Neurontin] 300 mg capsule 1 dose PO SEE INSTRUCTIONS RF: 0 Referrals: Delon Heck MD [Physician] - Renetta Ramos DO [Primary Care Provider] -
[2018-06-19] MEDS: OXYCODONE/ACETAMINOPHEN 5/325 TABLET 2 TAB PO (10:58)
[2018-06-19 11:16] LABS: Add Manual Diff / Slide Review NO; Basophils Absolute Auto 100 /uL (0-100); Basophils Percent Auto 1.1 % (0-2); Eosinophils Absolute Auto 200 /uL (0-450); Eosinophils Percent Auto 2.5 % (2-4); Hematocrit 44.5 % (36-46); Hemoglobin 14.8 g/dL (12.0-16.0); Lymphocytes Absolute Auto 600 /uL (1100-4500); Lymphocytes Percent Auto 6.5 % (25-40); Mean Corpuscular HGB Conc 33.4 % (30-36); Mean Corpuscular Hemoglobin 31.6 PG (26-34); Mean Corpuscular Volume 94.5 fL (80-100); Monocytes Absolute Auto 500 /uL (0-900); Neutrophils Absolute Auto 7800 /uL (1500-7000); Neutrophils Percent Auto 84.9 % (50-75); Platelet Count 182 X10^3/uL (150-400); Red Cell Distribution Width 14.9 % (11.6-14.8); White Blood Cell Count 9.2 X10^3/uL (4.5-11.0)
[2018-06-19 11:26] LABS: Blood Urea Nitrogen 18 mg/dL (7-17); Calcium 9.1 mg/dL (8.4-10.2); Carbon Dioxide 25 mmol/L (22-32); Chloride 104 mmol/L (98-107); Estimated Glomerular Filt Rate > 60.0 mL/min (>60); Glucose 102 mg/dL (80-110); HEMOLYSIS 46 (0-50); Potassium 4.6 mmol/L (3.4-5.1); Sodium 138 mmol/L (137-145)
--- NOTE | 2018-06-19 11:40 | DI.MRI.S_ITS ---
PROCEDURE: MR LUMBAR SPINE WO CON INDICATIONS: L2 compression fx. hx urinary incontinence, maybe worse TECHNIQUE: Noncontrast sagittal T1 spin echo and T2 fast echo, sagittal STIR, axial T1 and T2 fast spin echo through the lumbar spine. In cases with scoliosis, additional coronal T2 fast spin echo may be performed. COMPARISON: None. FINDINGS: Image quality: Excellent. Alignment and Curvature: There is normal bony alignment and curvature. Bone Marrow: Loss of height noted in the L2 vertebral body compatible with known compression fracture. There is increased T2 signal in marrow space the L2 vertebral body indicating compression fracture is acute/subacute. L2 compression fracture results in approximately 25% loss of normal anterior vertebral body height. No kyphosis or retropulsion fragments are associated with the L2 compression fracture. Spinal Cord: Conus medullaris terminates at the T12-L1 disc level. Visualized cord demonstrates normal signal and size. Paraspinous Soft Tissues: No paravertebral masses. L1-L2: Loss of disc signal. Mild diffuse disc bulge and mild bilateral facet hypertrophy. Mild to moderate narrowing of the central canal. Mild right and moderate left neural foraminal narrowing. No neural impingement. L2-L3: Loss of disc signal. Mild, diffuse disc bulge. Moderate bilateral facet hypertrophy. Moderate ligamentum flavum hypertrophy. Moderate narrowing of the central canal. Mild bilateral neural foraminal narrowing. No neural impingement. L3-L4: Loss of the signal. Minimal, diffuse disc bulge. Hsdhvety-qd-gbumen facet hypertrophy. Moderate ligamentum flavum hypertrophy. Moderate narrowing of the central canal. Moderate bilateral neural foraminal narrowing. No neural impingement. L4-L5: Loss of the signal. Mild to moderate bilateral facet hypertrophy. Moderate narrowing of the central canal. Moderate to severe right and moderate left neural foraminal narrowing slight flattened deformity exiting right L4 nerve root. L5-S1: Loss of the signal. Mild, diffuse disc bulge. Mild bilateral facet hypertrophy. Mild central canal. Moderate right and mild left neural foraminal narrowing. No neural impingement. IMPRESSION: 1. Acute L2 compression fracture. 2. Multilevel degenerative disease. 3. Multilevel facet arthropathy. 4. Moderate L2-L3, L3-L4 and L4-L5 central canal narrowing. Mild to moderate L1-L2 central canal narrowing. Mild L5-S1 central. 5. Moderate to severe right and moderate left L4-L5 neural foraminal narrowing. Moderate bilateral L3-L4 neural foraminal narrowing. Moderate right and mild left L5-S1 neural foraminal narrowing. Mild right and moderate left L1-L2 neural foraminal narrowing. Mild bilateral L2-L3 neuroforaminal narrowing. Dictated by: Jessica Peralta MD, PhD on 06/19/2018 at 12:51 Approved by: Jessica Peralta MD, PhD on 06/19/2018 at 13:01
[2018-06-19] MEDS: HYDROMORPHONE 1 MG INJ 0.5 MG IV (11:53)
[2018-06-19 14:58] LABS: Bacteria Urine Many (>30); Culture Indicated Urine Specimen Cultured; RBC Urine 10-30/HPF (0-5/HPF); WBC Urine 10-30/HPF (0-5/HPF)
== END 2018-06-19 14:10 | disposition home or self-care (01) ==
PROVIDERS: Emergency Provider Emergency Medicine; PCP Family Medicine
DX: S32.020A Wedge compression fracture of second lumbar vertebra, initial encounter for closed fracture (principal); N39.0 Urinary tract infection, site not specified; W01.0XXA Fall on same level from slipping, tripping and stumbling without subsequent striking against object, initial encounter
CPT/HCPCS: 36591; 72131; 72148; 73502; 80048; 81003; 81015; 85025; 87077; 87086; 87186; 96374; 99283; 99284; J1170

== ENCOUNTER → 2018-07-08 14:49 | Outpatient (CLI) | payer MEDICARE, SELFPAY ==
[2018-07-08 16:07] LABS: Appearance Urine UA SL CLOUDY; Bilirubin Urine UA NEGATIVE (NEGATIVE); Color Urine UA YELLOW; Glucose Urine UA NEGATIVE (Negative); Ketones Urine UA TRACE (NEGATIVE); Leukocyte Esterase Urine UA 1+ (NEGATIVE); Nitrite Urine UA POSITIVE (Negative); Occult Blood Urine UA 3+ (Negative); Protein Urine UA 2+ (Negative); Urobilinogen Urine UA 0.2 E.U./dL (0.2); pH Urine UA 5.5 (4.5-8.0)
[2018-07-08 16:12] LABS: B Type Natriuretic Peptide 380 (<100)
[2018-07-08 16:31] LABS: Bacteria Urine Moderate (10-30); Culture Indicated Urine Specimen Cultured; RBC Urine 1-5/HPF (0-5/HPF); Squamous Epithelial Cell Urine 1-5 /HPF; WBC Urine 30-100/HPF (0-5/HPF)
== END ==
PROVIDERS: Hospitalist; PCP Family Medicine; Visit Provider Family Medicine
DX: N39.0 Urinary tract infection, site not specified (principal); R06.02 Shortness of breath
CPT/HCPCS: 36415; 81001; 83880; 87077; 87086; 87186

== ENCOUNTER → 2018-07-17 12:01 | Outpatient (CLI) | payer MEDICARE, SELFPAY ==
[2018-07-17 13:32] LABS: Bilirubin Urine UA NEGATIVE (NEGATIVE); Color Urine UA YELLOW; Glucose Urine UA NEGATIVE (Negative); Ketones Urine UA NEGATIVE (NEGATIVE); Leukocyte Esterase Urine UA 2+ (NEGATIVE); Nitrite Urine UA POSITIVE (Negative); Occult Blood Urine UA 3+ (Negative); Protein Urine UA TRACE (Negative); Specific Gravity Urine UA 1.025 (1.000-1.035); Urobilinogen Urine UA 0.2 E.U./dL (0.2)
[2018-07-17 13:41] LABS: Appearance Urine UA Cloudy
[2018-07-17 13:58] LABS: RBC Urine 1-5/HPF (0-5/HPF)
[2018-07-17 13:59] LABS: Bacteria Urine Moderate (10-30); Culture Indicated Urine Specimen Cultured; Squamous Epithelial Cell Urine 5-10 /HPF (0-5/HPF); WBC Urine 30-100/HPF (0-5/HPF)
== END ==
PROVIDERS: PCP Family Medicine; Visit Provider Hospitalist
DX: N39.0 Urinary tract infection, site not specified (principal)
CPT/HCPCS: 81001; 87077; 87086; 87186

== ENCOUNTER → 2018-08-14 17:40 | Outpatient (CLI) | payer MEDICARE, SELFPAY ==
[2018-08-14 19:13] LABS: BUN Creatinine Ratio 23.3 (6-22); Blood Urea Nitrogen 28 mg/dL (7-17); Calcium 9.3 mg/dL (8.4-10.2); Carbon Dioxide 25 mmol/L (22-32); Chloride 105 mmol/L (98-107); Estimated Glomerular Filt Rate 43.4 mL/min (>60); Glucose 90 mg/dL (80-110); HEMOLYSIS < 15 (0-50); Potassium 4.2 mmol/L (3.4-5.1); Sodium 141 mmol/L (137-145)
[2018-08-14 19:44] LABS: TSH w/ Reflex to FT4 1.84 uIU/mL (0.47-4.68)
== END ==
PROVIDERS: PCP Family Medicine; Visit Provider Family Medicine
DX: E87.5 Hyperkalemia (principal); E03.9 Hypothyroidism, unspecified
CPT/HCPCS: 36415; 80048; 84443

== ENCOUNTER → 2018-08-19 15:45 | Outpatient (ROUT) | payer MEDICARE, SELFPAY ==
[2018-08-19 15:53] LABS: Appearance Urine UA CLOUDY; Bilirubin Urine UA NEGATIVE (NEGATIVE); Color Urine UA ORANGE; Glucose Urine UA TRACE g/dL (Negative); Ketones Urine UA TRACE (NEGATIVE); Leukocyte Esterase Urine UA 2+ (NEGATIVE); Nitrite Urine UA POSITIVE (Negative); Occult Blood Urine UA 3+ (Negative); Protein Urine UA 2+ (Negative); Specific Gravity Urine UA 1.025 (1.000-1.035)
[2018-08-19 16:05] LABS: Amorphous Sediment Urine 1+; RBC Urine 1-5/HPF (0-5/HPF); Squamous Epithelial Cell Urine 1-5 /HPF (0-5/HPF); WBC Urine >100/HPF (0-5/HPF)
[2018-08-19 16:06] LABS: Bacteria Urine Many (>30); Culture Indicated Urine Specimen Cultured; Mucus Urine 1+ (Negative)
== END ==
PROVIDERS: PCP Family Medicine; Visit Provider Hospitalist
DX: R35.0 Frequency of micturition (principal)
CPT/HCPCS: 81001; 87077; 87086; 87186

== ENCOUNTER 2018-10-19 12:12 | Emergency (ER) | payer MEDICARE, SELFPAY ==
[2018-10-19 12:44] VITALS: BP 162/82; PULSE 62; RESP 14; TEMP 36.4; O2SAT 99
--- NOTE | 2018-10-19 13:09 | DI.RAD.S_ITS ---
PROCEDURE: XR LUMBAR SPINE 2-3V INDICATIONS: blunt trauma to back from fall. TECHNIQUE: 3 views of the lumbar spine were acquired. COMPARISON: [facility], CR, XR THORACIC SPINE 3V, 10/19/2018, 13:15. [facility], CT, CT LUMBAR SPINE WO CON, 06/19/2018, 10:41. FINDINGS: Bones: L1 compression fracture with mild height loss, new since 06/19/18. L2 compression fracture with moderate anterior height loss is progressed since the prior study. The remaining vertebral body heights are grossly preserved. Multilevel degenerative endplate sclerosis and spurring. Diffuse facet arthropathy. Straightening of the normal lordotic curvature. Mild dextro curvature. Hffx-yv-iyyeprnl diffuse lumbar disc space narrowing Soft tissues: Overlying bowel gas pattern is normal. No suspicious soft tissue calcifications. IMPRESSION: Mild L1 compression fracture, new since 06/19/18 although the exact acuity is unclear given the absence of any additional comparison studies. Interval progression of L2 compression fracture height loss since 06/19/18. Diffuse mild to moderate lumbar spondylosis and facet arthropathy. Dextro curvature as before. Dictated by: Alexander Lopez M.D. on 10/19/2018 at 13:58 Approved by: Alexander Lopez M.D. on 10/19/2018 at 14:01
--- NOTE | 2018-10-19 13:09 | DI.RAD.S_ITS ---
PROCEDURE: XR THORACIC SPINE 3V INDICATIONS: Driect trauma to upper thorasic spine, pain with palp TECHNIQUE: 2 views of the thoracic spine were acquired. COMPARISON: [facility], , XR LUMBAR SPINE 2-3V, 10/19/2018, 13:15. FINDINGS: Bones: Partially visualized upper lumbar compression fracture. The thoracic vertebral bodies appear grossly intact. Multilevel degenerative endplate sclerosis and spurring. Diffuse facet arthropathy. Mild lateral curvature of the thoracic spine. Soft tissues: No paravertebral stripe thickening. IMPRESSION: Upper lumbar compression fractures. Please see dedicated lumbar spine radiographs report for further characterization. Thoracic spine vertebral body heights grossly preserved. Multilevel chronic discogenic changes. Dictated by: Alexander Lopez M.D. on 10/19/2018 at 14:01 Approved by: Alexander Lopez M.D. on 10/19/2018 at 14:08
--- NOTE | 2018-10-19 13:12 | ED.BACK ---
HPI - Back Pain/Injury <Ysabel GundersonREGIS - Last Filed: 10/19/18 19:07> General Chief Complaint: Back Pain/Injury Stated Complaint: injury pain in lower back x2 days Time Seen by Provider: 10/19/18 12:43 Source: patient and family Mode of arrival: ambulatory Limitations: no limitations History of Present Illness HPI Narrative: 78-year-old female who is currently taking Pradaxa has a history of AFib, osteoporosis, chronic low back pain, and a history of L1 fracture 3 months ago, presents emergency department complaining of a ground level fall 3 days ago. She states she was in her bathroom and does not remember sleeping but also does not remember feeling ill or dizzy before the event, she fell backwards in to the door jam hitting her lower back. She states it was difficult to stand up afterwards and she scooted herself to the living room while she rested with pillows before she was able to get herself into bed. Now complains of a dull aching 8/10 lower back pain that is worse with ambulation and changing positions from sitting to standing and lying to standing. States pain radiates to her abdominal wall. She states she took a hydrocodone 9:00 a.m. this morning. Denies headaches, chest pain, shortness of breath, fevers, nausea, abdominal pain, vomiting, saddle paresthesias, numbness or tingling in her legs, or syncope. Related Data Home Medications Medication Instructions Recorded Confirmed multivitamin with minerals 1 tab PO DAILY #0 11/30/07 07/08/18 acetaminophen 500 mg capsule 500 mg PO Q4-6H PRN 01/12/18 07/08/18 turmeric root extract 500 mg 500 mg PO DAILY 01/12/18 07/08/18 capsule Manuka Honey 550 ea PO BID 06/19/18 07/08/18 dabigatran etexilate [Pradaxa] 150 mg PO QPM 06/19/18 10/19/18 levothyroxine 88 mcg PO DAILY 06/19/18 10/19/18 metoprolol succinate [Toprol XL] 50 mg PO DAILY 06/19/18 10/19/18 cephalexin 250 mg PO DAILY 10/19/18 10/19/18 gabapentin 600 - 900 mg PO BEDTIME 10/19/18 10/19/18 Previous Rx's Medication Instructions Recorded hydrochlorothiazide 12.5 mg tablet 12.5 mg PO DAILY #30 tab 07/08/18 calcitonin (salmon) 200 1 spray INTRANASAL (ALT) DAILY 08/19/18 unit/actuation nasal spray #3.7 ml cefpodoxime 200 mg tablet 200 mg PO BID #10 tab 08/19/18 citalopram 40 mg tablet 40 mg PO QPM #90 tab 08/19/18 lorazepam 1 mg tablet 1 mg PO BEDTIME #90 tab 10/09/18 hydrocodone 10 mg-acetaminophen 0.5 tab PO Q4H PRN #30 tab 10/13/18 325 mg tablet hydrocodone-acetaminophen [[place]] 1 tab PO Q6H #14 tab 10/19/18 Allergies Allergy/AdvReac Type Severity Reaction Status Date / Time bacitracin [BACITRACIN] Allergy Mild HIVES Verified 07/08/18 14:04 ciprofloxacin [CIPROFLOXACIN] Allergy Mild JOINT PAIN Verified 07/08/18 14:04 neomycin [NEOMYCIN] Allergy Mild HIVES Verified 07/08/18 14:04 polymyxin B [POLYMYXIN B] Allergy Mild HIVES Verified 07/08/18 14:04 tramadol [TRAMADOL] AdvReac Intermediate sweaty, Verified 07/08/18 14:04 hot and nauseous Review of Systems <REGIS Blue - Last Filed: 10/19/18 19:07> Review of Systems REVIEW OF SYSTEMS: GENERAL: Denies fever or chills. HENT: No head trauma. EYES: No double vision or vision loss. CARDIOVASCULAR: No chest pain or syncope. RESPIRATORY: No shortness of breath or cough. GASTROINTESTINAL: No nausea, vomiting, diarrhea, or constipation. GENITOURINARY: No flank pain or dysuria. MUSCULOSKELETAL: Complains of back pain, see HPI. INTEGUMENTARY: No rash, lesions, or pruritus. NEURO: No numbness, tingling. PSYCH: No behavior or mood changes. 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 Social History marital status: household members: spouse lives independently: Yes Smoking Status: Former smoker Family History Mother Mental health problem Depression Alzheimer's disease Brother Diabetes mellitus Father Lung cancer Sister Brain cancer Family/Other Bipolar disorder Grandmother No problems noted. Social History marital status: household members: spouse lives independently: Yes Smoking Status: Former smoker Exam <REGIS Blue - Last Filed: 10/19/18 19:07> Initial Vital Signs Initial Vital Signs: Vital Signs Temperature 97.5 F L 10/19/18 12:44 Pulse Rate 62 10/19/18 12:44 Respiratory Rate 14 10/19/18 12:44 Blood Pressure 162/82 H 10/19/18 12:44 Pulse Oximetry 99 10/19/18 12:44 PHYSICAL EXAMINATION: GENERAL: Well groomed, alert, and cooperative. Answers questions promptly and appropriately. Vital signs noted. HENT: Normocephalic, atraumatic. EYES: PERRLA. EOMIs, Symmetrical, sclera white, no periorbital swelling. CARDIOVASCULAR: S1 and S2 sounds normal. Regular rate and rhythm, no murmurs, clicks, or bruits. No pedal edema. RESPIRATORY: Normal respiratory rate, trachea midline, airway patent. No stridor, nasal flaring or accessory muscle use. Lungs are clear in all graham. GASTRO: Two very large hernias noted to her left abdominal wall (this is chronic and has been well known to patient, she states she has been seen multiple times for this and that her hernias cannot be surgically repaired). No pain with light and deep palpation of hernias or the entire abdomen. Abdomen is soft and nondistended. MUSCULOSKELETAL: Patient is slow to change positions from lying to sitting to standing due to pain. Equal tone and mass bilaterally. Spinal tenderness on palpation of upper thoracic spine and lower lumbar spine, with the most tenderness being located in the lower lumbar spine. Decreased rotational range of motion and bending due to pain. No erythema, ecchymosis, or swelling present in areas. Upper and lower extremities exhibit equal strength bilaterally. No sensory deficits to extremities. EXTREMITIES: CMS intact. No pedal edema. SKIN: Warm, dry, soft, appropriate color for ethnicity. No lesions, rashes, or wounds. NEURO: Alert and Oriented X 3. No sensory deficits to upper or lower extremities. No ataxia or cognitive issues. PSYCH: Appropriate affect and mood. <Zeke Garza DO - Last Filed: 10/20/18 08:15> Initial Vital Signs Initial Vital Signs: Vital Signs Temperature 97.5 F L 10/19/18 12:44 Pulse Rate 62 10/19/18 12:44 Respiratory Rate 14 10/19/18 12:44 Blood Pressure 162/82 H 10/19/18 12:44 Pulse Oximetry 99 10/19/18 12:44 Course <REGIS Blue - Last Filed: 10/19/18 19:07> Course Narrative: Patient was able to ambulate independently with the use of a walker. She states the back pain was significantly relieved when she use the walker to walk. Patient understood importance of follow-up with primary care provider, all patient's and family's questions were answered. Orders Ordered: ED Orders 10/19/18 13:09 XR lumbar spine 2-3V Stat XR thoracic spine 3V Stat Consultations Consultation #1: Patient staffed with Dr. Garza Vital Signs - 8 hr 10/19/18 12:44 Temperature 97.5 F L Pulse Rate 62 Respiratory Rate 14 Blood Pressure 162/82 H Pulse Oximetry 99 <Zeke Garza DO - Last Filed: 10/20/18 08:15> Orders Ordered: ED Orders 10/19/18 13:09 XR lumbar spine 2-3V Stat XR thoracic spine 3V Stat Vital Signs - 8 hr 10/19/18 12:44 Temperature 97.5 F L Pulse Rate 62 Respiratory Rate 14 Blood Pressure 162/82 H Pulse Oximetry 99 MDM - Back Pain/Injury <REGIS Blue - Last Filed: 10/19/18 19:07> Medical Records Attestation: I reviewed the patient's medical records. Lab Data Attestation: I reviewed the patient's lab results. Imaging Data Lumbar XR: Radiologist's impression: [address] [address] XRay Report Signed Patient: Rliey Torres#: [id number] : 1940Acct:[id number] Age/Sex: 78 / FDate of Service: 10/19/18 Loc: ED Accession Number: [id number] Procedure: XR lumbar spine 2-3V Ordering Provider: Ysabel Gunderson PROCEDURE: XR LUMBAR SPINE 2-3V INDICATIONS: blunt trauma to back from fall. TECHNIQUE: 3 views of the lumbar spine were acquired. COMPARISON: [facility], CR, XR THORACIC SPINE 3V, 10/19/2018, 13:15. [facility], CT, CT LUMBAR SPINE WO CON, 06/19/2018, 10:41. FINDINGS: Bones: L1 compression fracture with mild height loss, new since 06/19/18. L2 compression fracture with moderate anterior height loss is progressed since the prior study. The remaining vertebral body heights are grossly preserved. Multilevel degenerative endplate sclerosis and spurring. Diffuse facet arthropathy. Straightening of the normal lordotic curvature. Mild dextro curvature. Divx-xg-xuaiaive diffuse lumbar disc space narrowing Soft tissues: Overlying bowel gas pattern is normal. No suspicious soft tissue calcifications. IMPRESSION: Mild L1 compression fracture, new since 06/19/18 although the exact acuity is unclear given the absence of any additional comparison studies. Interval progression of L2 compression fracture height loss since 06/19/18. Diffuse mild to moderate lumbar spondylosis and facet arthropathy. Dextro curvature as before. Dictated by: Alexander Lopez M.D. on 10/19/2018 at 13:58 Approved by: Alexander Lopez M.D. on 10/19/2018 at 14:01 Thorasic XR: Radiologist's impression: [address] [address] XRay Report Signed Patient: Riley Torres#: [id number] : 1940Acct:[id number] Age/Sex: 78 / FDate of Service: 10/19/18 Loc: ED Accession Number: [id number] Procedure: XR thoracic spine 3V Ordering Provider: Ysabel Gunderson PROCEDURE: XR THORACIC SPINE 3V INDICATIONS: Driect trauma to upper thorasic spine, pain with palp TECHNIQUE: 2 views of the thoracic spine were acquired. COMPARISON: [facility], CR, XR LUMBAR SPINE 2-3V, 10/19/2018, 13:15. FINDINGS: Bones: Partially visualized upper lumbar compression fracture. The thoracic vertebral bodies appear grossly intact. Multilevel degenerative endplate sclerosis and spurring. Diffuse facet arthropathy. Mild lateral curvature of the thoracic spine. Soft tissues: No paravertebral stripe thickening. IMPRESSION: Upper lumbar compression fractures. Please see dedicated lumbar spine radiographs report for further characterization. Thoracic spine vertebral body heights grossly preserved. Multilevel chronic discogenic changes. Dictated by: Alexander Lopez M.D. on 10/19/2018 at 14:01 Approved by: Alexander Lopez M.D. on 10/19/2018 at 14:08 MDM Narrative Medical decision making narrative: Suspect patient's pain is caused from new compression fracture as found on x-ray, this correlates with physical exam. However patient was sent home as this was a stable fracture and she was able to ambulate by herself with using a walker. Her pain was successfully controlled with the hydrocodone that she took at home, pain medications were given to continue with pain control. I suspect patient's fall was mechanical due to the description, denying any other symptoms, history of a fall due to mechanical issues, and patient's ability to ambulate without dizziness, chest pain, shortness of breath, or other issues. Patient was encouraged to follow up if symptoms occur or if additional falls occur. Strict return precautions given. Discharge Plan Departure Patient Disposition: Home Clinical Impression: Compression fracture Discharge Date/Time: 10/19/18 14:50 Interventions: ED Discharge Assessment Last Done: 07/15/19 14:50 Instructions: DI for Vertebral Fracture, DI for Low Back Pain Activity Restrictions/Additional Instructions: Thank you for entrusting me with your care today. As discussed, you have a new compression fracture to L1. Please use the walker to decrease the back pain. I have prescribed you a medication for pain, this is a narcotic so do not drive with this medication, it also can cause constipation so take [id number] stool softener such as docusate if this occurs. Follow up with your primary care provider in the next week. Return to the emergency department if he develops pelvic numbness or tingling, loss of bowel or bladder control, increased falls, syncope, dizziness, chest pain, or shortness of breath. Prescriptions: New hydrocodone-acetaminophen [[place]] 5-325 mg tablet 1 tab PO Q6H Qty: 14 RF: 0 No Action multivitamin with minerals Tablet 1 tab PO DAILY Qty: 0 RF: 0 lorazepam 1 mg tablet 1 mg PO BEDTIME Qty: 90 RF: 0 hydrocodone-acetaminophen 10-325 mg tablet 0.5 tab PO Q4H PRN (Reason: pain) Qty: 30 RF: 0 turmeric root extract 500 mg capsule 500 mg PO DAILY RF: 0 acetaminophen 500 mg capsule 500 mg PO Q4-6H PRN (Reason: PAIN) RF: 0 hydrochlorothiazide 12.5 mg tablet 12.5 mg PO DAILY Qty: 30 RF: 0 calcitonin (salmon) 200 unit/actuation spray,non-aerosol 1 spray Intranasal (ALT) DAILY Qty: 3.7 RF: 0 citalopram [Celexa] 40 mg tablet 40 mg PO QPM Qty: 90 RF: 3 cefpodoxime 200 mg tablet 200 mg PO BID Qty: 10 RF: 0 levothyroxine 88 mcg tablet 88 mcg PO DAILY RF: 0 Pradaxa 150 mg capsule 150 mg PO QPM RF: 0 metoprolol succinate [Toprol XL] 50 mg tablet extended release 24 hr 50 mg PO DAILY RF: 0 Manuka Honey 550 ea PO BID RF: 0 cephalexin 250 mg capsule 250 mg PO DAILY RF: 0 gabapentin 300 mg capsule 600 - 900 mg PO BEDTIME RF: 0 Referrals: Renetta Ramos DO [Primary Care Provider] - <Zeke Garza DO - Last Filed: 10/20/18 08:15> Cosign ED Attending Vaheature Attestation: I was available for consultation during this patient's emergency department encounter
--- NOTE | 2018-10-19 13:15 | ED_ITS ---
HPI - Back Pain/Injury <Ysabel GundersonREGIS - Last Filed: 10/19/18 19:07> General Chief Complaint: Back Pain/Injury Stated Complaint: injury pain in lower back x2 days Time Seen by Provider: 10/19/18 12:43 Source: patient and family Mode of arrival: ambulatory Limitations: no limitations History of Present Illness HPI Narrative: 78-year-old female who is currently taking Pradaxa has a history of AFib, osteoporosis, chronic low back pain, and a history of L1 fracture 3 months ago, presents emergency department complaining of a ground level fall 3 days ago. She states she was in her bathroom and does not remember sleeping but also does not remember feeling ill or dizzy before the event, she fell backwards in to the door jam hitting her lower back. She states it was difficult to stand up afterwards and she scooted herself to the living room while she rested with pillows before she was able to get herself into bed. Now complains of a dull aching 8/10 lower back pain that is worse with ambulation and changing positions from sitting to standing and lying to standing. States pain radiates to her abdominal wall. She states she took a hydrocodone 9:00 a.m. this morning. Denies headaches, chest pain, shortness of breath, fevers, nausea, abdominal pain, vomiting, saddle paresthesias, numbness or tingling in her legs, or syncope. Related Data Home Medications Medication Instructions Recorded Confirmed multivitamin with minerals 1 tab PO DAILY #0 11/30/07 07/08/18 acetaminophen 500 mg capsule 500 mg PO Q4-6H PRN 01/12/18 07/08/18 turmeric root extract 500 mg 500 mg PO DAILY 01/12/18 07/08/18 capsule Manuka Honey 550 ea PO BID 06/19/18 07/08/18 dabigatran etexilate [Pradaxa] 150 mg PO QPM 06/19/18 10/19/18 levothyroxine 88 mcg PO DAILY 06/19/18 10/19/18 metoprolol succinate [Toprol XL] 50 mg PO DAILY 06/19/18 10/19/18 cephalexin 250 mg PO DAILY 10/19/18 10/19/18 gabapentin 600 - 900 mg PO BEDTIME 10/19/18 10/19/18 Previous Rx's Medication Instructions Recorded hydrochlorothiazide 12.5 mg tablet 12.5 mg PO DAILY #30 tab 07/08/18 calcitonin (salmon) 200 1 spray INTRANASAL (ALT) DAILY 08/19/18 unit/actuation nasal spray #3.7 ml cefpodoxime 200 mg tablet 200 mg PO BID #10 tab 08/19/18 citalopram 40 mg tablet 40 mg PO QPM #90 tab 08/19/18 lorazepam 1 mg tablet 1 mg PO BEDTIME #90 tab 10/09/18 hydrocodone 10 mg-acetaminophen 0.5 tab PO Q4H PRN #30 tab 10/13/18 325 mg tablet hydrocodone-acetaminophen [Fancy Farm] 1 tab PO Q6H #14 tab 10/19/18 Allergies Allergy/AdvReac Type Severity Reaction Status Date / Time bacitracin [BACITRACIN] Allergy Mild HIVES Verified 07/08/18 14:04 ciprofloxacin [CIPROFLOXACIN] Allergy Mild JOINT PAIN Verified 07/08/18 14:04 neomycin [NEOMYCIN] Allergy Mild HIVES Verified 07/08/18 14:04 polymyxin B [POLYMYXIN B] Allergy Mild HIVES Verified 07/08/18 14:04 tramadol [TRAMADOL] AdvReac Intermediate sweaty, Verified 07/08/18 14:04 hot and nauseous Review of Systems <REGIS Blue - Last Filed: 10/19/18 19:07> Review of Systems REVIEW OF SYSTEMS: GENERAL: Denies fever or chills. HENT: No head trauma. EYES: No double vision or vision loss. CARDIOVASCULAR: No chest pain or syncope. RESPIRATORY: No shortness of breath or cough. GASTROINTESTINAL: No nausea, vomiting, diarrhea, or constipation. GENITOURINARY: No flank pain or dysuria. MUSCULOSKELETAL: Complains of back pain, see HPI. INTEGUMENTARY: No rash, lesions, or pruritus. NEURO: No numbness, tingling. PSYCH: No behavior or mood changes. 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 Social History marital status: household members: spouse lives independently: Yes Smoking Status: Former smoker Family History Mother Mental health problem Depression Alzheimer's disease Brother Diabetes mellitus Father Lung cancer Sister Brain cancer Family/Other Bipolar disorder Grandmother No problems noted. Social History marital status: household members: spouse lives independently: Yes Smoking Status: Former smoker Exam <REGIS Blue - Last Filed: 10/19/18 19:07> Initial Vital Signs Initial Vital Signs: Vital Signs Temperature 97.5 F L 10/19/18 12:44 Pulse Rate 62 10/19/18 12:44 Respiratory Rate 14 10/19/18 12:44 Blood Pressure 162/82 H 10/19/18 12:44 Pulse Oximetry 99 10/19/18 12:44 PHYSICAL EXAMINATION: GENERAL: Well groomed, alert, and cooperative. Answers questions promptly and appropriately. Vital signs noted. HENT: Normocephalic, atraumatic. EYES: PERRLA. EOMIs, Symmetrical, sclera white, no periorbital swelling. CARDIOVASCULAR: S1 and S2 sounds normal. Regular rate and rhythm, no murmurs, clicks, or bruits. No pedal edema. RESPIRATORY: Normal respiratory rate, trachea midline, airway patent. No stridor, nasal flaring or accessory muscle use. Lungs are clear in all graham. GASTRO: Two very large hernias noted to her left abdominal wall (this is chronic and has been well known to patient, she states she has been seen multiple times for this and that her hernias cannot be surgically repaired). No pain with light and deep palpation of hernias or the entire abdomen. Abdomen is soft and nondistended. MUSCULOSKELETAL: Patient is slow to change positions from lying to sitting to standing due to pain. Equal tone and mass bilaterally. Spinal tenderness on palpation of upper thoracic spine and lower lumbar spine, with the most tenderness being located in the lower lumbar spine. Decreased rotational range of motion and bending due to pain. No erythema, ecchymosis, or swelling present in areas. Upper and lower extremities exhibit equal strength bilaterally. No sensory deficits to extremities. EXTREMITIES: CMS intact. No pedal edema. SKIN: Warm, dry, soft, appropriate color for ethnicity. No lesions, rashes, or wounds. NEURO: Alert and Oriented X 3. No sensory deficits to upper or lower extremities. No ataxia or cognitive issues. PSYCH: Appropriate affect and mood. <Zeke Garza DO - Last Filed: 10/20/18 08:15> Initial Vital Signs Initial Vital Signs: Vital Signs Temperature 97.5 F L 10/19/18 12:44 Pulse Rate 62 10/19/18 12:44 Respiratory Rate 14 10/19/18 12:44 Blood Pressure 162/82 H 10/19/18 12:44 Pulse Oximetry 99 10/19/18 12:44 Course <REGIS Blue - Last Filed: 10/19/18 19:07> Course Narrative: Patient was able to ambulate independently with the use of a walker. She states the back pain was significantly relieved when she use the walker to walk. Patient understood importance of follow-up with primary care provider, all patient's and family's questions were answered. Orders Ordered: ED Orders 10/19/18 13:09 XR lumbar spine 2-3V Stat XR thoracic spine 3V Stat Consultations Consultation #1: Patient staffed with Dr. Garza Vital Signs - 8 hr 10/19/18 12:44 Temperature 97.5 F L Pulse Rate 62 Respiratory Rate 14 Blood Pressure 162/82 H Pulse Oximetry 99 <Zeke Garza DO - Last Filed: 10/20/18 08:15> Orders Ordered: ED Orders 10/19/18 13:09 XR lumbar spine 2-3V Stat XR thoracic spine 3V Stat Vital Signs - 8 hr 10/19/18 12:44 Temperature 97.5 F L Pulse Rate 62 Respiratory Rate 14 Blood Pressure 162/82 H Pulse Oximetry 99 MDM - Back Pain/Injury <REGIS Blue - Last Filed: 10/19/18 19:07> Medical Records Attestation: I reviewed the patient's medical records. Lab Data Attestation: I reviewed the patient's lab results. Imaging Data Lumbar XR: Radiologist's impression: [address] [address] XRay Report Signed Patient: Riley Torres#: [id number] : 1940Acct:[id number] Age/Sex: 78 / FDate of Service: 10/19/18 Loc: ED Accession Number: [id number] Procedure: XR lumbar spine 2-3V Ordering Provider: Ysabel Gunderson PROCEDURE: XR LUMBAR SPINE 2-3V INDICATIONS: blunt trauma to back from fall. TECHNIQUE: 3 views of the lumbar spine were acquired. COMPARISON: [facility], CR, XR THORACIC SPINE 3V, 10/19/2018, 13:15. [facility], CT, CT LUMBAR SPINE WO CON, 06/19/2018, 10:41. FINDINGS: Bones: L1 compression fracture with mild height loss, new since 06/19/18. L2 compression fracture with moderate anterior height loss is progressed since the prior study. The remaining vertebral body heights are grossly preserved. Multilevel degenerative endplate sclerosis and spurring. Diffuse facet arthropathy. Straightening of the normal lordotic curvature. Mild dextro curvature. [id number]-[id number] diffuse lumbar disc space narrowing Soft tissues: Overlying bowel gas pattern is normal. No suspicious soft tissue calcifications. IMPRESSION: Mild L1 compression fracture, new since 06/19/18 although the exact acuity is unclear given the absence of any additional comparison studies. Interval progression of L2 compression fracture height loss since 06/19/18. Diffuse mild to moderate lumbar spondylosis and facet arthropathy. Dextro curvature as before. Dictated by: Alexander Lopez M.D. on 10/19/2018 at 13:58 Approved by: Alexander Lopez M.D. on 10/19/2018 at 14:01 Thorasic XR: Radiologist's impression: [address] [address] XRay Report Signed Patient: Riley Torres#: [id number] : 1940Acct:[id number] Age/Sex: 78 / FDate of Service: 10/19/18 Loc: ED Accession Number: [id number] Procedure: XR thoracic spine 3V Ordering Provider: Ysabel Gunderson PROCEDURE: XR THORACIC SPINE 3V INDICATIONS: Driect trauma to upper thorasic spine, pain with palp TECHNIQUE: 2 views of the thoracic spine were acquired. COMPARISON: [facility], CR, XR LUMBAR SPINE 2-3V, 10/19/2018, 13:15. FINDINGS: Bones: Partially visualized upper lumbar compression fracture. The thoracic vertebral bodies appear grossly intact. Multilevel degenerative endplate sclerosis and spurring. Diffuse facet arthropathy. Mild lateral curvature of the thoracic spine. Soft tissues: No paravertebral stripe thickening. IMPRESSION: Upper lumbar compression fractures. Please see dedicated lumbar spine radiographs report for further characterization. Thoracic spine vertebral body heights grossly preserved. Multilevel chronic discogenic changes. Dictated by: Alexander Lopez M.D. on 10/19/2018 at 14:01 Approved by: Alexander Lopez M.D. on 10/19/2018 at 14:08 [facility] Narrative Medical decision making narrative: Suspect patient's pain is caused from new compression fracture as found on x-ray, this correlates with physical exam. However patient was sent home as this was a stable fracture and she was able to ambulate by herself with using a walker. Her pain was successfully controlled with the hydrocodone that she took at home, pain medications were given to continue with pain control. I suspect patient's fall was mechanical due to the description, denying any other symptoms, history of a fall due to mechanical issues, and patient's ability to ambulate without dizziness, chest pain, shortness of breath, or other issues. Patient was encouraged to follow up if symptoms occur or if additional falls occur. Strict return precautions given. Discharge Plan Departure Patient Disposition: Home Clinical Impression: Compression fracture Discharge Date/Time: 10/19/18 14:50 Interventions: ED Discharge Assessment Last Done: 10/19/18 14:50 Instructions: DI for Vertebral Fracture, DI for Low Back Pain Activity Restrictions/Additional Instructions: Thank you for entrusting me with your care today. As discussed, you have a new compression fracture to L1. Please use the walker to decrease the back pain. I have prescribed you a medication for pain, this is a narcotic so do not drive with this medication, it also can cause constipation so take [id number] stool softener such as docusate if this occurs. Follow up with your primary care provider in the next week. Return to the emergency department if he develops pelvic numbness or tingling, loss of bowel or bladder control, increased falls, syncope, dizziness, chest pain, or shortness of breath. Prescriptions: New hydrocodone-acetaminophen [Fancy Farm] 5-325 mg tablet 1 tab PO Q6H Qty: 14 RF: 0 No Action multivitamin with minerals Tablet 1 tab PO DAILY Qty: 0 RF: 0 lorazepam 1 mg tablet 1 mg PO BEDTIME Qty: 90 RF: 0 hydrocodone-acetaminophen 10-325 mg tablet 0.5 tab PO Q4H PRN (Reason: pain) Qty: 30 RF: 0 turmeric root extract 500 mg capsule 500 mg PO DAILY RF: 0 acetaminophen 500 mg capsule 500 mg PO Q4-6H PRN (Reason: PAIN) RF: 0 hydrochlorothiazide 12.5 mg tablet 12.5 mg PO DAILY Qty: 30 RF: 0 calcitonin (salmon) 200 unit/actuation spray,non-aerosol 1 spray Intranasal (ALT) DAILY Qty: 3.7 RF: 0 citalopram [Celexa] 40 mg tablet 40 mg PO QPM Qty: 90 RF: 3 cefpodoxime 200 mg tablet 200 mg PO BID Qty: 10 RF: 0 levothyroxine 88 mcg tablet 88 mcg PO DAILY RF: 0 Pradaxa 150 mg capsule 150 mg PO QPM RF: 0 metoprolol succinate [Toprol XL] 50 mg tablet extended release 24 hr 50 mg PO DAILY RF: 0 Manuka Honey 550 ea PO BID RF: 0 cephalexin 250 mg capsule 250 mg PO DAILY RF: 0 gabapentin 300 mg capsule 600 - 900 mg PO BEDTIME RF: 0 Referrals: Renetta Ramos DO [Primary Care Provider] - <Zeke Garza DO - Last Filed: 10/20/18 08:15> Cosign ED Attending Halley Attestation: I was available for consultation during this patient's emergency department encounter
== END 2018-10-19 14:50 | disposition home or self-care (01) ==
PROVIDERS: Emergency Provider Nurse Practitioner; PCP Family Medicine
DX: S32.019A Unspecified fracture of first lumbar vertebra, initial encounter for closed fracture (principal); S32.029A Unspecified fracture of second lumbar vertebra, initial encounter for closed fracture; W19.XXXA Unspecified fall, initial encounter
CPT/HCPCS: 72072; 72100; 99282; 99283

== ENCOUNTER → 2018-11-25 14:32 | Outpatient (CLI) | payer MEDICARE, SELFPAY ==
[2018-11-25 16:22] LABS: Alanine Aminotransferase 14 IU/L (9-52); Albumin 4.2 g/dL (3.5-5.0); Albumin Globulin Ratio 1.2 (1.0-2.8); Alkaline Phosphatase 97 U/L (38-126); Aspartate Aminotransferase 24 IU/L (14-36); BUN Creatinine Ratio 18.5 (6-22); Bilirubin Total 0.5 mg/dL (0.2-1.3); Blood Urea Nitrogen 24 mg/dL (7-17); Calcium 9.4 mg/dL (8.4-10.2); Carbon Dioxide 27 mmol/L (22-32); Chloride 104 mmol/L (98-107); Estimated Glomerular Filt Rate 39.6 mL/min (>60); Globulin 3.4 g/dL (1.7-4.1); Glucose 94 mg/dL (80-110); HEMOLYSIS < 15 (0-50); Potassium 5.1 mmol/L (3.4-5.1); Sodium 141 mmol/L (137-145); Total Protein 7.6 g/dL (6.3-8.2)
[2018-12-09 10:10] LABS: 1 25 Dihydroxy Vitamin D 32
== END ==
PROVIDERS: PCP Family Medicine; Visit Provider Hospitalist
DX: M81.0 Age-related osteoporosis without current pathological fracture (principal)
CPT/HCPCS: 36415; 80053; 82652

== ENCOUNTER → 2018-12-01 14:31 | Outpatient (CLI) | payer MEDICARE, SELFPAY | PROVIDERS: Family Provider Family Medicine; PCP Family Medicine; Visit Provider Hospitalist | DX: M81.0 Age-related osteoporosis without current pathological fracture (principal) | CPT/HCPCS: 77080 ==

== ENCOUNTER → 2020-02-28 10:16 | Outpatient (CLI) | payer MEDICARE, SELFPAY ==
[2020-02-28 10:57] LABS: Add Manual Diff / Slide Review NO; Basophils Absolute Auto 100 /uL (0-100); Basophils Percent Auto 1.3 % (0-2); Eosinophils Absolute Auto 200 /uL (0-450); Eosinophils Percent Auto 3.8 % (2-4); Hematocrit 41.3 % (36-46); Hemoglobin 13.8 g/dL (12.0-16.0); Lymphocytes Absolute Auto 1100 /uL (1100-4500); Lymphocytes Percent Auto 16.9 % (25-40); Mean Corpuscular HGB Conc 33.4 % (30-36); Mean Corpuscular Hemoglobin 31.2 PG (26-34); Mean Corpuscular Volume 93.4 fL (80-100); Monocytes Absolute Auto 400 /uL (0-900); Monocytes Percent Auto 6.6 % (3-14); Neutrophils Absolute Auto 4500 /uL (1500-7000); Neutrophils Percent Auto 71.4 % (50-75); Platelet Count 202 X10^3/uL (150-400); Red Blood Cell Count 4.42 X10^6/uL (4.0-5.2); Red Cell Distribution Width 14.6 % (11.6-14.8); White Blood Cell Count 6.4 X10^3/uL (4.5-11.0)
[2020-02-28 11:17] LABS: Alanine Aminotransferase 11 IU/L (<35); Albumin Globulin Ratio 1.1 (1.0-2.8); Alkaline Phosphatase 82 U/L (38-126); Aspartate Aminotransferase 24 IU/L (14-36); BUN Creatinine Ratio 15.1 (6-22); Bilirubin Total 0.8 mg/dL (0.2-1.3); Blood Urea Nitrogen 18 mg/dL (7-17); Calcium 8.7 mg/dL (8.4-10.2); Carbon Dioxide 29 mmol/L (22-32); Chloride 106 mmol/L (98-107); Cholesterol 94 mg/dL (140-199); Estimated Glomerular Filt Rate 43.8 mL/min (>60); Globulin 3.5 g/dL (1.7-4.1); Glucose 94 mg/dL (80-110); HDL Cholesterol 52 mg/dL (40-60); HEMOLYSIS < 15 (0-50); LDL Cholesterol Calculated 29 mg/dL (<100); Potassium 4.7 mmol/L (3.4-5.1); Sodium 138 mmol/L (137-145); Total Protein 7.5 g/dL (6.3-8.2); Triglycerides 65 mg/dL (35-150)
[2020-02-28 12:18] LABS: TSH w/ Reflex to FT4 4.04 uIU/mL (0.47-4.68)
== END ==
PROVIDERS: Family Provider Family Medicine; PCP Family Medicine; Referring Provider Family Medicine; Visit Provider Family Medicine
DX: E03.9 Hypothyroidism, unspecified (principal); E87.5 Hyperkalemia; I10 Essential (primary) hypertension; I48.91 Unspecified atrial fibrillation; Z79.01 Long term (current) use of anticoagulants; Z79.2 Long term (current) use of antibiotics
CPT/HCPCS: 36415; 80053; 80061; 84443; 85025

== ENCOUNTER → 2020-04-11 12:27 | Outpatient (CLI) | payer MEDICARE, SELFPAY ==
--- NOTE | 2020-04-11 12:30 | DI.MG.S_ITS ---
BILATERAL DIGITAL SCREENING MAMMOGRAM 3D/2D WITH CAD: 04/11/2020 CLINICAL: Routine screening. Personal history of bilateral breast cancer. Comparison is made to exams dated: 03/10/2018 mammogram - [facility], 11/14/2016 mammogram, and 06/07/2015 mammogram - [facility]. The tissue of both breasts is heterogeneously dense. This may lower the sensitivity of mammography. Current study was also evaluated with a Computer Aided Detection (CAD) system. There are benign calcifications in both breasts. There also are benign post operative findings in both breasts. No significant masses, calcifications, or other findings are seen in either breast. There has been no significant interval change. IMPRESSION: BENIGN There is no mammographic evidence of malignancy. A 1 year screening mammogram is recommended. This exam was interpreted at Station ID: [id number]. NOTE: For mammograms, a report in lay terms will be sent to the patient. Approximately 15% of breast malignancies will not be visualized mammographically. In the management of a palpable breast mass, a negative mammogram must not discourage biopsy of a clinically suspicious lesion. Electronically Signed By: Andi parikh/karley:04/11/2020 13:39:39 letter sent: Normal Exam ACR BI-RADS Category 2: Benign Finding(s) 3342F
== END ==
PROVIDERS: Family Provider Family Medicine; PCP Family Medicine; Referring Provider Family Medicine; Visit Provider Family Medicine
DX: Z12.31 Encounter for screening mammogram for malignant neoplasm of breast (principal); Z85.3 Personal history of malignant neoplasm of breast
CPT/HCPCS: 77063; 77067

== ENCOUNTER 2020-05-09 11:18 | Emergency (ER) | payer MEDICARE, SELFPAY ==
[2020-05-09] VITALS (22 sets, daily range): BP systolic 190–241; BP diastolic 83–133; PULSE 55–88; RESP 15–41; TEMP 36.6; O2SAT 87–99; BMI 29.5
--- NOTE | 2020-05-09 11:40 | DI.CT.S_ITS ---
PROCEDURE: CT HEAD/BRAIN WO CON INDICATIONS: Fall on blood thinners TECHNIQUE: Noncontrast 4.5 mm thick angled axial sections acquired from the foramen magnum to the vertex, with coronal and sagittal reformats. For radiation dose reduction, the following was used: automated exposure control, adjustment of mA and/or kV according to patient size. COMPARISON: None. FINDINGS: Image quality: Excellent. CSF spaces: Basal cisterns are patent. No extra-axial fluid collections. The ventricles are symmetric in size and shape. Brain: No intracranial bleeds or masses. There is cerebral volume loss for age, with resultant ventricular and sulcal prominence. There are periventricular and deep white matter chronic small vessel ischemic changes. There is intracranial internal carotid artery atherosclerosis. Skull and face: Calvarium and visualized facial bones appear intact, without suspicious lesions. Sinuses: Visualized sinuses and mastoids are clear. IMPRESSION: 1. No CT evidence of acute intracranial pathology. No acute skull fracture. 2. Age-appropriate atrophy and moderate white matter chronic small vessel ischemic changes. Dictated by: Branden Sanchez M.D. on 05/09/2020 at 11:58 Approved by: Branden Sanchez M.D. on 05/09/2020 at 11:59
--- NOTE | 2020-05-09 11:40 | DI.CT.S_ITS ---
PROCEDURE: CT CERVICAL SPINE WO CON INDICATIONS: Fall on thinners with neck pain TECHNIQUE: Noncontrast 3 mm thick sections acquired from the skull base to the T4 level. Sagittal and coronal reformats were then constructed. For radiation dose reduction, the following was used: automated exposure control, adjustment of mA and/or kV according to patient size. COMPARISON: None. FINDINGS: Image quality: Excellent. Bones: No fractures or dislocations. Degenerative endplate changes and decreased intervertebral disc space at C3-4 through C6-7 levels are seen. Osteoarthritic changes also noted between anterior aspect of dense and anterior arch of C1. Visualized superior ribs are intact. Soft tissues: Prevertebral soft tissues are normal in thickness. No paravertebral hematomas. No apical pneumothoraces. Enlarged thyroid gland is seen with hypodense areas suggestive of multinodular goiter. IMPRESSION: 1. No acute cervical spine fracture or dislocation. 2. Degenerative disc disease throughout cervical spine as above. 3. Suggestion of multinodular goiter, ultrasound of thyroid gland can be done for further evaluation of this region if indicated. Dictated by: Branden Sanchez M.D. on 05/09/2020 at 11:55 Approved by: Branden Sanchez M.D. on 05/09/2020 at 11:57
--- NOTE | 2020-05-09 12:01 | DI.RAD.S_ITS ---
PROCEDURE: XR CHEST 1V INDICATIONS: chest pain TECHNIQUE: One view of the chest was acquired. COMPARISON: [facility], , CHEST 2 VIEW, 10/06/2007, 15:43. FINDINGS: Surgical changes and devices: None. Lungs and pleura: Chronic emphysematous changes are seen. No focal infiltrate. There is mild pulmonary edema. No pleural effusions or pneumothorax. Mediastinum: Mediastinal contours appear normal. Heart size is enlarged. Bones and chest wall: No suspicious bony lesions. Overlying soft tissues appear unremarkable. IMPRESSION: Cardiomegaly and mild pulmonary edema. No focal infiltrate, pleural effusion or pneumothorax. Dictated by: Branden Sanchez M.D. on 05/09/2020 at 11:59 Approved by: Branden Sanchez M.D. on 05/09/2020 at 12:00
[2020-05-09 12:09] LABS: Add Manual Diff / Slide Review NO; Basophils Absolute Auto 0 /uL (0-100); Basophils Percent Auto 0.8 % (0-2); Eosinophils Absolute Auto 100 /uL (0-450); Eosinophils Percent Auto 1.5 % (2-4); Hematocrit 41.6 % (36-46); Hemoglobin 13.8 g/dL (12.0-16.0); Lymphocytes Absolute Auto 900 /uL (1100-4500); Lymphocytes Percent Auto 15.2 % (25-40); Mean Corpuscular HGB Conc 33.2 % (30-36); Mean Corpuscular Hemoglobin 31.2 PG (26-34); Monocytes Absolute Auto 400 /uL (0-900); Monocytes Percent Auto 6.1 % (3-14); Neutrophils Absolute Auto 4600 /uL (1500-7000); Neutrophils Percent Auto 76.4 % (50-75); Platelet Count 196 X10^3/uL (150-400); Red Blood Cell Count 4.43 X10^6/uL (4.0-5.2)
[2020-05-09 12:19] LABS: INR 1.1 (0.9-1.3)
[2020-05-09 12:21] LABS: PTT Partial Thromboplastin Tim 35 SECONDS (26.4-36.2)
[2020-05-09 12:23] LABS: Alanine Aminotransferase 13 IU/L (<35); Albumin 4.2 g/dL (3.5-5.0); Albumin Globulin Ratio 1.3 (1.0-2.8); Alkaline Phosphatase 80 U/L (38-126); Aspartate Aminotransferase 27 IU/L (14-36); BUN Creatinine Ratio 17.1 (6-22); Bilirubin Total 0.8 mg/dL (0.2-1.3); Blood Urea Nitrogen 19 mg/dL (7-17); Calcium 9.2 mg/dL (8.4-10.2); Carbon Dioxide 28 mmol/L (22-32); Chloride 105 mmol/L (98-107); Creatine Kinase 81 U/L (30-135); Estimated Glomerular Filt Rate 47.3 mL/min (>60); Globulin 3.3 g/dL (1.7-4.1); Glucose 103 mg/dL (80-110); HEMOLYSIS < 15 (0-50); Lipase 110 U/L (23-300); Magnesium 1.9 mg/dL (1.6-2.3); Potassium 4.1 mmol/L (3.4-5.1); Sodium 137 mmol/L (137-145); Total Protein 7.5 g/dL (6.3-8.2)
[2020-05-09 12:35] LABS: Troponin I 0.061 ng/mL (0.01-0.034)
--- NOTE | 2020-05-09 13:16 | ED.GENADULT ---
HPI - General Adult General Chief complaint: Trauma Stated complaint: fell backwards/hit head/ no blood thinners 2 days Time Seen by Provider: 05/09/20 11:28 Source: patient Mode of arrival: Wheelchair Limitations: no limitations History of Present Illness HPI narrative: Patient is a 80-year-old female. Does have a history of atrial fibrillation. Is also taking anticoagulation but has not taken this for the past 2 days because she states she thinks that her vessels have been dilated. She stated that today she was coming out of her house with her walker. She when pulled the car out of the garage. She went back to get her walker to put it into the car and as she was coming down the stairs she lost her footing and fell backwards hitting her head on an object. There was no loss of consciousness. She was able to get up afterwards with some help from neighbors. Did have some bleeding from the back of her head. She has no upper extremity or lower extremity or hip discomfort. Related Data Home Medications Medication Instructions Recorded Confirmed multivitamin with minerals 1 tab PO DAILY #0 11/30/07 02/18/20 acetaminophen 500 mg capsule 500 mg PO Q4-6H PRN 01/12/18 02/18/20 turmeric root extract 500 mg 500 mg PO DAILY 01/12/18 02/18/20 capsule cephalexin 250 mg PO DAILY 10/19/18 02/18/20 dabigatran etexilate 150 mg capsule 150 mg PO DAILY 02/18/20 02/18/20 Previous Rx's Medication Instructions Recorded hydrochlorothiazide 12.5 mg tablet 12.5 mg PO DAILY #30 tab 02/10/19 alendronate 70 mg tablet 70 mg PO QWEEK #20 tab 05/10/19 gabapentin 300 mg capsule 600 - 900 mg PO BEDTIME #270 cap 07/05/19 citalopram 40 mg tablet 40 mg PO QPM #90 tab 08/04/19 metoprolol succinate 50 mg 50 mg PO DAILY #90 tab 11/01/19 tablet,extended release 24 hr lorazepam 1 mg tablet 1 mg PO BEDTIME #90 tab 03/13/20 hydrocodone 10 mg-acetaminophen 0.5 tab PO Q4H PRN #60 tab 03/22/20 325 mg tablet levothyroxine 88 mcg tablet 88 mcg PO DAILY #90 tab 05/01/20 cephalexin [Keflex] 500 mg PO BID 5 Days #10 cap 05/09/20 Allergies Allergy/AdvReac Type Severity Reaction Status Date / Time bacitracin [BACITRACIN] Allergy Mild HIVES Verified 05/09/20 11:35 ciprofloxacin [CIPROFLOXACIN] Allergy Mild JOINT PAIN Verified 05/09/20 11:35 neomycin [NEOMYCIN] Allergy Mild HIVES Verified 05/09/20 11:35 polymyxin B [POLYMYXIN B] Allergy Mild HIVES Verified 05/09/20 11:35 tramadol [TRAMADOL] AdvReac Intermediate sweaty, Verified 05/09/20 11:35 hot and nauseous Review of Systems Constitutional Constitutional: Denies fatigue, Denies fever(s) and Denies headache(s) Eyes Eyes: Denies blurry vision and Denies change in vision ENT Ears, Nose, Mouth, and Throat: Denies vertigo, Denies dizziness and Denies headache(s) Cardiovascular Cardiovascular: Denies chest pain and Denies dyspnea Respiratory Respiratory: Denies dyspnea Gastrointestinal Gastrointestinal: Denies abdominal pain, Denies nausea and Denies vomiting Musculoskeletal Musculoskeletal: Denies arthralgias and Denies myalgias Integumentary/Breasts Comments: Bleeding from back of head Neurologic Neurologic: Denies behavioral changes, Denies confusion, Denies vertigo, Denies dizziness and Denies headache(s) Psychiatric Psychiatric: Denies behavioral changes and Denies confusion Endocrine Endocrine: Denies fatigue Hematologic/Lymphatic On Anticoagulants: Yes Allergic/Immunologic Allergic/Immunologic: Denies urticaria Patient History Medical History Chronic back pain Depression Diverticular disease 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) Frequent UTI Kidney disease Neck pain Paroxysmal atrial fibrillation (2009) Peripheral neuropathy Shoulder pain TIA (transient ischemic attack) (2010) Urinary incontinence Surgical History Anesthesia complication History of bowel resection History of intestinal surgery (2005) History of lumpectomy (2007) S/P total abdominal hysterectomy and bilateral salpingo-oophorectomy (2005) Status post colostomy (2005) Family History Mother Mental health problem Depression Alzheimer's disease Brother Diabetes mellitus Father Lung cancer Sister Brain cancer Family/Other Bipolar disorder Grandmother No problems noted. Social History marital status: household members: spouse lives independently: Yes Smoking Status: Former smoker Smoking Status: Former smoker alcohol intake frequency: 0-2 drinks per day Substance Use Type: does not use Exam Initial Vital Signs Initial Vital Signs: Vital Signs Temperature 97.9 F 05/09/20 11:29 Pulse Rate 60 05/09/20 11:29 Respiratory Rate 15 05/09/20 11:29 Blood Pressure 217/99 H 05/09/20 11:29 Pulse Oximetry 97 05/09/20 11:29 Const General: cooperative and comfortable Limitations: mental status not altered HENMT Head: abrasion (1 cm posterior scalp) Eyes General: appearance normal, both eyes and all related structures Chest Chest: No crepitus and No tenderness Resp Effort & Inspection: normal respiratory effort Auscultation: clear to auscultation bilaterally Cardio Rate: regular rate Rhythm: regular rhythm GI Inspection: non-distended Palpation: soft Back/Spine/Pelvis Cervical Spine: collar present Thoracic/Lumbar Spine: No thoracic spinal tenderness and No lumbar spinal tenderness Skin Other: 1 cm laceration/abrasion to the occipital/parietal aspect of the scalp. Neuro General: patient alert, patient awake and patient oriented x3 Cognition: normal cognition Speech: speech normal Motor: muscle tone normal throughout Extrem General: normal to inspection and capillary refill normal Other: Bilateral upper extremities, pelvis, bilateral lower extremities unremarkable on physical exam Psych Appearance: grossly normal and well kempt Scores GCS [place] coma scale eye opening: Spontaneous Sonya coma scale verbal response: Orientated [place] coma scale motor response: Obey commands [place] coma scale total score: 15 Course Orders Ordered: ED Orders 05/09/20 11:40 CT cervical spine wo con Stat CT head/brain wo con Stat 05/09/20 12:00 Complete Blood Count AUTO DIFF Stat Comprehensive Metabolic Panel Stat Lipase Stat Magnesium Stat Partial Thromboplastin Time Stat Prothrombin Time INR Stat Troponin & CK Cardiac Panel Stat 05/09/20 12:01 XR chest 1V Stat EKG-12 Lead Stat 05/09/20 13:41 Urine Culture Stat Urine Microscopic Stat Discontinued Medications Lisinopril (Lisinopril 10 Mg Tablet) 10 mg PO NOW ONE Stop: 05/09/20 14:46 Last Admin: 05/09/20 14:56 Dose: 10 mg Documented by: FERNANDO Vital Signs Vital signs: Vital Signs - 8 hr 05/09/20 11:29 05/09/20 11:43 05/09/20 11:44 Temperature 97.9 F Pulse Rate 60 55 L 55 L Respiratory Rate 15 Blood Pressure 217/99 H 214/92 H 233/112 H Pulse Oximetry 97 95 95 05/09/20 11:59 05/09/20 12:00 05/09/20 12:01 Temperature Pulse Rate 57 L 56 L 61 Respiratory Rate 28 H 26 H 15 Blood Pressure 222/100 H 226/95 H Pulse Oximetry 90 L 99 96 05/09/20 12:16 05/09/20 12:30 05/09/20 12:41 Temperature Pulse Rate 60 59 L 62 Respiratory Rate 41 H 30 H 19 Blood Pressure 211/88 H 214/92 H Pulse Oximetry 97 95 05/09/20 12:45 05/09/20 12:53 05/09/20 13:00 Temperature Pulse Rate 58 L 60 59 L Respiratory Rate 21 21 18 Blood Pressure 207/88 H 217/88 H 226/97 H Pulse Oximetry 96 97 95 05/09/20 13:39 05/09/20 14:00 05/09/20 14:01 Temperature Pulse Rate 67 64 71 Respiratory Rate 31 H 30 H 25 H Blood Pressure 241/133 H Pulse Oximetry 87 L 97 96 05/09/20 14:19 05/09/20 14:34 05/09/20 14:45 Temperature Pulse Rate 65 Respiratory Rate 25 H Blood Pressure 234/95 H 204/83 H Pulse Oximetry 97 05/09/20 14:48 05/09/20 14:51 05/09/20 14:56 Temperature Pulse Rate 78 88 Respiratory Rate 16 Blood Pressure 212/88 H 192/108 H 212/88 H Pulse Oximetry 05/09/20 15:37 Temperature Pulse Rate 68 Respiratory Rate 16 Blood Pressure 190/106 H Pulse Oximetry 99 Medical Decision Making Lab Data Lab results reviewed: Yes I reviewed the patient's lab results. Result diagrams: 05/09/20 12:00 05/09/20 12:00 Labs: Lab Results 05/09/20 05/09/20 05/09/20 Range/Units 12:00 12:00 12:00 WBC 6.0 (4.5-11.0) X10^3/uL RBC 4.43 (4.0-5.2) X10^6/uL Hgb 13.8 (12.0-16.0) g/dL Hct 41.6 (36-46) % MCV 94.0 (80-100) fL MCH 31.2 (26-34) PG MCHC 33.2 (30-36) % RDW 15.0 H (11.6-14.8) % Plt Count 196 (150-400) X10^3/uL Neut % (Auto) 76.4 H (50-75) % Lymph % (Auto) 15.2 L (25-40) % [place] % (Auto) 6.1 (3-14) % Eos % (Auto) 1.5 L (2-4) % Baso % (Auto) 0.8 (0-2) % Neut # (Auto) 4600 (2987-4778) /uL Lymph # (Auto) 900 L (5571-2928) /uL [place] # (Auto) 400 (0-900) /uL Eos # (Auto) 100 (0-450) /uL Baso # (Auto) 0 (0-100) /uL PT 13.0 H (10.1-12.7) SECONDS INR 1.1 (0.9-1.3) APTT 35 (26.4-36.2) SECONDS Sodium 137 (137-145) mmol/L Potassium 4.1 (3.4-5.1) mmol/L Chloride 105 (98-107) mmol/L Carbon Dioxide 28 (22-32) mmol/L BUN 19 H (7-17) mg/dL Creatinine 1.11 H (0.52-1.04) mg/dL Estimated GFR 47.3 L (>60) mL/min BUN/Creatinine Ratio 17.1 (6-22) Glucose 103 (80-110) mg/dL Calcium 9.2 (8.4-10.2) mg/dL Magnesium 1.9 (1.6-2.3) mg/dL Total Bilirubin 0.8 (0.2-1.3) mg/dL AST 27 (14-36) IU/L ALT 13 (<35) IU/L Alkaline Phosphatase 80 (38-126) U/L Total Creatine Kinase 81 (30-135) U/L CK-MB (CK-2) TNP CK-MB (CK-2) Rel Index TNP Troponin I 0.061 H (0.01-0.034) ng/mL Total Protein 7.5 (6.3-8.2) g/dL Albumin 4.2 (3.5-5.0) g/dL Globulin 3.3 (1.7-4.1) g/dL Albumin/Globulin Ratio 1.3 (1.0-2.8) Lipase 110 (23-300) U/L Urine RBC (0-5/HPF) Urine WBC (0-5/HPF) Ur Squamous Epith Cells (0-5/HPF) Amorphous Sediment Urine Bacteria (None) Urine Mucus (Negative) Ur Culture Indicated? 05/09/20 Range/Units 13:41 WBC (4.5-11.0) X10^3/uL RBC (4.0-5.2) X10^6/uL Hgb (12.0-16.0) g/dL Hct (36-46) % MCV (80-100) fL MCH (26-34) PG MCHC (30-36) % RDW (11.6-14.8) % Plt Count (150-400) X10^3/uL Neut % (Auto) (50-75) % Lymph % (Auto) (25-40) % [place] % (Auto) (3-14) % Eos % (Auto) (2-4) % Baso % (Auto) (0-2) % Neut # (Auto) (3833-6852) /uL Lymph # (Auto) (0811-0580) /uL [place] # (Auto) (0-900) /uL Eos # (Auto) (0-450) /uL Baso # (Auto) (0-100) /uL PT (10.1-12.7) SECONDS INR (0.9-1.3) APTT (26.4-36.2) SECONDS Sodium (137-145) mmol/L Potassium (3.4-5.1) mmol/L Chloride (98-107) mmol/L Carbon Dioxide (22-32) mmol/L BUN (7-17) mg/dL Creatinine (0.52-1.04) mg/dL Estimated GFR (>60) mL/min BUN/Creatinine Ratio (6-22) Glucose (80-110) mg/dL Calcium (8.4-10.2) mg/dL Magnesium (1.6-2.3) mg/dL Total Bilirubin (0.2-1.3) mg/dL AST (14-36) IU/L ALT (<35) IU/L Alkaline Phosphatase (38-126) U/L Total Creatine Kinase (30-135) U/L CK-MB (CK-2) CK-MB (CK-2) Rel Index Troponin I (0.01-0.034) ng/mL Total Protein (6.3-8.2) g/dL Albumin (3.5-5.0) g/dL Globulin (1.7-4.1) g/dL Albumin/Globulin Ratio (1.0-2.8) Lipase (23-300) U/L Urine RBC 5-10/hpf H (0-5/HPF) Urine WBC 30-100/hpf H (0-5/HPF) Ur Squamous Epith Cells 1-5 /hpf (0-5/HPF) Amorphous Sediment 1+ Urine Bacteria Many (>30) H (None) Urine Mucus 1+ H (Negative) Ur Culture Indicated? Specimen cultured Urine Dip Bedside Urine Glucose Negative Bedside Urine Bilirubin - Negative Bedside Urine Ketone - Negative Urine Specific [place] 1.020 Bedside Urine Occult Blood +++ Bedside Urine pH 6.0 Bedside Urine Protein - Negative Bedside Urine Urobilinogen - Negative Bedside Urine Nitrite + Positive Bedside Urine Leukocytes + 70 Esterase Point of care testing: Urine Dip Bedside Urine Glucose Negative Bedside Urine Bilirubin - Negative Bedside Urine Ketone - Negative Urine Specific [place] 1.020 Bedside Urine Occult Blood +++ Bedside Urine pH 6.0 Bedside Urine Protein - Negative Bedside Urine Urobilinogen - Negative Bedside Urine Nitrite + Positive Bedside Urine Leukocytes + [address] - cervical spine: Radiologist's Impression: [address] [id number] Scan ReportSigned Patient: Riley Torres#: [id number]: 1940Acct:[id number]/Sex: 80 / FDate of Service: 05/09/20Loc: EDAccession Number: [id number] Procedure: CT cervical spine wo con Ordering Provider: Zeke Garza D.O. PROCEDURE: CT CERVICAL SPINE WO CON INDICATIONS: Fall on thinners with neck pain TECHNIQUE: Noncontrast 3 mm thick sections acquired from the skull base to the T4 level. Sagittal and coronal reformats were then constructed. For radiation dose reduction, the following was used: automated exposure control, adjustment of mA and/or kV according to patient size. COMPARISON: None. FINDINGS: Image quality: Excellent. Bones: No fractures or dislocations. Degenerative endplate changes and decreased intervertebral disc space at C3-4 through C6-7 levels are seen. Osteoarthritic changes also noted between anterior aspect of dense and anterior arch of C1. Visualized superior ribs are intact. Soft tissues: Prevertebral soft tissues are normal in thickness. No paravertebral hematomas. No apical pneumothoraces. Enlarged thyroid gland is seen with hypodense areas suggestive of multinodular goiter. IMPRESSION: 1. No acute cervical spine fracture or dislocation. 2. Degenerative disc disease throughout cervical spine as above. 3. Suggestion of multinodular goiter, ultrasound of thyroid gland can be done for further evaluation of this region if indicated. Dictated by: Branden Sanchez M.D. on 05/09/2020 at 11:55 Approved by: Branden Sanchez M.D. on 05/09/2020 at 11:57 CT scan - head: Radiologist's Impression: [address] [id number] Scan ReportSigned Patient: Riley Torres#: [id number]: 1940Acct:[id number]/Sex: 80 / FDate of Service: 05/09/20Loc: EDAccession Number: [id number] Procedure: CT head/brain wo con Ordering Provider: Zeke Garza D.O. PROCEDURE: CT HEAD/BRAIN WO CON INDICATIONS: Fall on blood thinners TECHNIQUE: Noncontrast 4.5 mm thick angled axial sections acquired from the foramen magnum to the vertex, with coronal and sagittal reformats. For radiation dose reduction, the following was used: automated exposure control, adjustment of mA and/or kV according to patient size. COMPARISON: None. FINDINGS: Image quality: Excellent. CSF spaces: Basal cisterns are patent. No extra-axial fluid collections. The ventricles are symmetric in size and shape. Brain: No intracranial bleeds or masses. There is cerebral volume loss for age, with resultant ventricular and sulcal prominence. There are periventricular and deep white matter chronic small vessel ischemic changes. There is intracranial internal carotid artery atherosclerosis. Skull and face: Calvarium and visualized facial bones appear intact, without suspicious lesions. Sinuses: Visualized sinuses and mastoids are clear. IMPRESSION: 1. No CT evidence of acute intracranial pathology. No acute skull fracture. 2. Age-appropriate atrophy and moderate white matter chronic small vessel ischemic changes. Dictated by: Branden Sanchez M.D. on 05/09/2020 at 11:58 Approved by: Branden Sanchez M.D. on 05/09/2020 at 11:59 Chest x-ray: Radiologist's Impression: [address] [id number] ReportSigned Patient: Riley Torres#: [id number]: 1940Acct:[id number]/Sex: 80 / FDate of Service: 05/09/20Loc: EDAccession Number: [id number] Procedure: XR chest 1V Ordering Provider: Zeke Garza D.O. PROCEDURE: XR CHEST 1V INDICATIONS: chest pain TECHNIQUE: One view of the chest was acquired. COMPARISON: [facility], , CHEST 2 VIEW, 10/06/2007, 15:43. FINDINGS: Surgical changes and devices: None. Lungs and pleura: Chronic emphysematous changes are seen. No focal infiltrate. There is mild pulmonary edema. No pleural effusions or pneumothorax. Mediastinum: Mediastinal contours appear normal. Heart size is enlarged. Bones and chest wall: No suspicious bony lesions. Overlying soft tissues appear unremarkable. IMPRESSION: Cardiomegaly and mild pulmonary edema. No focal infiltrate, pleural effusion or pneumothorax. Dictated by: Branden Sanchez M.D. on 05/09/2020 at 11:59 Approved by: Branden Sanchez M.D. on 05/09/2020 at 12:00 ECG Data Attestation: I personally reviewed and interpreted this ECG as follows: Prior ECG tracings: not available for review Interpretation: Atrial fibrillation Ventricular rate of 50 what Normal QRS Normal QTC Nonspecific ST T wave changes MDM Narrative Medical decision making narrative: Head CT and cervical spine CT are unremarkable. Her cervical collar is removed. The scalp abrasion/slight laceration is approximately 1 cm in length without any active bleeding. Had an extensive discussion with the patient regarding this. We discussed options to include ashwin verses not doing any closure here in the ER and the risks and benefits of all of this. After this discussion with the patient's daughter bedside decision was made not to pursue any ashwin or stitches. During her time here patient did have episodes of hypertension. She initially stated that she did not take her blood pressure medications last evening and I assume that this was the reason that her blood pressure is elevated however after further discussion it does appear that she did take her blood pressure medication but she did not take her Eliquis which is her blood thinner. She was confused about this. Patient was given a dose of lisinopril and her blood pressure was taken manually which showed a reduction to a systolic less than 200. Patient was also very anxious. I also felt that the high blood pressures were because she was having extreme discomfort when the automatic blood pressure cuff would take her blood pressure and she was tensing most likely cause in a false elevation. I discussed this with the patient in her daughter bedside. She is going to continue with all of her medications this evening. She does have a home blood pressure cuff and she will take her blood pressure at home and if her blood pressure remains elevated she is going to contact her primary doctor for further evaluation. Patient also states she has frequent urinary tract infections. She is having some dysuria. She states that at baseline she is on Keflex on a daily as a preventative medication however she ran out of this a couple days ago. This is followed by a urologist. I will treat her with Keflex she states that this is normally how she is treated. She is going to contact her urologist regarding a refill of her daily preventative medicine. She has no signs of pyelonephritis today on exam. Patient was given return precautions and follow-up instructions with regard all of her issues today. She expressed understanding and agreement. Discharge Plan Departure Patient Disposition: Home Clinical Impression: Fall, Abrasion of scalp, Hypertension, Urinary tract infection Instructions: Essential Hypertension Activity Restrictions/Additional Instructions: A prescription for antibiotics was electronically transmitted to [facility]. Take it as directed. Also contact your urologist to discuss a refill of your maintenance medications. Also recommend you continue the rest your medications as directed. Take your blood pressure medication when you return home like we discussed. Return to the emergency department for any new or worsening symptoms Prescriptions: New cephalexin [Keflex] 500 mg capsule 500 mg PO BID 5 Days Qty: 10 RF: 0 No Action multivitamin with minerals Tablet 1 tab PO DAILY Qty: 0 RF: 0 hydrochlorothiazide 12.5 mg tablet 12.5 mg PO DAILY Qty: 30 RF: 0 gabapentin 300 mg capsule 600 - 900 mg PO BEDTIME Qty: 270 RF: 1 citalopram [Celexa] 40 mg tablet 40 mg PO QPM Qty: 90 RF: 3 metoprolol succinate [Toprol XL] 50 mg tablet extended release 24 hr 50 mg PO DAILY Qty: 90 RF: 3 lorazepam 1 mg tablet 1 mg PO BEDTIME Qty: 90 RF: 0 hydrocodone-acetaminophen 10-325 mg tablet 0.5 tab PO Q4H PRN (Reason: pain) Qty: 60 RF: 0 levothyroxine 88 mcg tablet 88 mcg PO DAILY Qty: 90 RF: 1 turmeric root extract 500 mg capsule 500 mg PO DAILY RF: 0 acetaminophen 500 mg capsule 500 mg PO Q4-6H PRN (Reason: PAIN) RF: 0 alendronate [Fosamax] 70 mg tablet 70 mg PO QWEEK Qty: 20 RF: 0 Pradaxa 150 mg capsule 150 mg PO DAILY RF: 0 cephalexin 250 mg capsule 250 mg PO DAILY RF: 0 Referrals: Renetta Ramos DO [Primary Care Provider] -
[2020-05-09 14:11] LABS: Amorphous Sediment Urine 1+; Bacteria Urine Many (>30); Culture Indicated Urine Specimen Cultured; Mucus Urine 1+ (Negative); RBC Urine 5-10/HPF (0-5/HPF); Squamous Epithelial Cell Urine 1-5 /HPF (0-5/HPF); WBC Urine 30-100/HPF (0-5/HPF)
[2020-05-09] MEDS: lisinopriL 10 MG TABLET PO (14:56)
== END 2020-05-09 15:59 | disposition home or self-care (01) ==
PROVIDERS: Emergency Provider Emergency Medicine; Family Provider Family Medicine; PCP Family Medicine
DX: S00.01XA Abrasion of scalp, initial encounter (principal); I10 Essential (primary) hypertension; N39.0 Urinary tract infection, site not specified; W19.XXXA Unspecified fall, initial encounter; M54.2 Cervicalgia; R07.9 Chest pain, unspecified; I48.91 Unspecified atrial fibrillation; Z79.01 Long term (current) use of anticoagulants; Z86.73 Personal history of transient ischemic attack (TIA), and cerebral infarction without residual deficits; R30.0 Dysuria
CPT/HCPCS: 36415; 70450; 71045; 72125; 80053; 81003; 81015; 82550; 83690; 83735; 84484; 85025; 85610; 85730; 87077; 87086; 87186; 93005; 99284; 99285

== ENCOUNTER → 2020-06-21 11:04 | Outpatient (CLI) | payer MEDICARE, SELFPAY ==
[2020-06-21] MEDS: COVID-19 VACC #1, MRNA(MOD) 100 MCG/0.5 ML VIAL IM (11:14)
== END ==
PROVIDERS: Family Provider Family Medicine; PCP Family Medicine; Visit Provider Internal Medicine
DX: Z23 Encounter for immunization (principal)
CPT/HCPCS: 0011A; 91301

== ENCOUNTER → 2020-07-07 13:38 | Outpatient (CLI) | payer MEDICARE, SELFPAY ==
--- NOTE | 2020-07-07 13:40 | DI.US.S_ITS ---
PROCEDURE: US THYROID INDICATIONS: FOLLOW UP CT - THYROID NODULES TECHNIQUE: Real-time scanning was performed of the thyroid gland, with image documentation. COMPARISON: [facility], CT, CT CERVICAL SPINE WO CON, 05/09/2020, 12:28. FINDINGS: Right: Thyroid lobe measures 5.7 x 1.9 x 1.6 cm, and is heterogeneous in appearance with numerous ill-defined nodules consistent with multinodular goiter. Left: Thyroid lobe measures 5.8 x 2.3 x 2.6 cm, and is heterogeneous in appearance with numerous ill-defined nodules consistent with multinodular goiter. Isthmus: 1.4 cm thick. Nodule number: 1 Location: Right superior pole. Size: 2.1 x 1.3 x 0.8 cm. Composition: Predominantly solid Echogenicity: Heterogeneously hypoechoic. Shape: wider than tall. Margins: Ill-defined. Echogenic foci: None. Total points: 3 ACR TI-RADS category: 3: Mildly suspicious. Nodule number: 2 Location: Mid right lobe. Size: 1.3 x 1.3 x 1.1 cm. Composition: Solid Echogenicity: Isoechoic Shape: Wider than tall Margins: Smooth Echogenic foci: None Total points: 3 ACR TI-RADS category: 3: Mildly suspicious. Nodule number: 3 Location: Inferior left lobe. Size: 2.2 x 2.0 x 2.1 cm. Composition: Solid Echogenicity: Isoechoic Shape: wider than tall. Margins: Smooth Echogenic foci: None Total points: 3: ACR TI-RADS category: 3: Mildly suspicious. Nodule number: 4 Location: Mid left lobe. Size: 2.0 x 1.4 x 2.2 cm. Composition: Solid Echogenicity: Isoechoic Shape: Taller than wide Margins: Smooth Echogenic foci: None. Total points: 6 ACR TI-RADS category: 4: Moderately suspicious. IMPRESSION: 1. Heterogeneous thyroid with numerous bilateral nodules compatible with multinodular goiter. 2. Left midpole TI-RADS 4 lesion is moderately suspicious. Consider ultrasound-guided fine needle aspiration or follow-up in 6 months. 3. Additional bilateral nodules are mildly suspicious TI-RADS 3 lesions. Follow-up may be performed in 12 months to demonstrate stability if clinically indicated. ACR TI-RADS definitions and recommendations: TI-RADS 1 (benign): 0 points. FNA not needed. TI-RADS 2 (not suspicious): 2 points. FNA not needed. TI-RADS 3 (mildly suspicious): 3 points. * FNA if 2.5 cm or larger, follow up if 1.5 cm or larger (at 1, 3, and 5 years). TI-RADS 4 (moderately suspicious): 4-6 points. * FNA if 1.5 cm or larger, follow up if 1 cm or larger (at 1, 2, 3, and 5 years). TI-RADS 5 (highly suspicious): 7 points or more. * FNA if 1 cm or larger, follow up if 0.5 cm or larger (every year for 5 years). Dictated by: Yousuf Howell M.D. on 07/08/2020 at 0:05 Approved by: Yousuf Howell M.D. on 07/08/2020 at 0:28
[2020-07-07 15:47] LABS: BUN Creatinine Ratio 23.3 (6-22); Blood Urea Nitrogen 30 mg/dL (7-17); Carbon Dioxide 28 mmol/L (22-32); Chloride 107 mmol/L (98-107); Estimated Glomerular Filt Rate 39.8 mL/min (>60); Glucose 118 mg/dL (80-110); HEMOLYSIS 27 (0-50); Potassium 4.5 mmol/L (3.4-5.1); Sodium 142 mmol/L (137-145)
[2020-07-07 16:01] LABS: Creatinine Urine Random 216.3 mg/dL; Microalbumi Creatinin Ratio Ur 73.9 ug/mg CR (<30)
[2020-07-07 16:18] LABS: TSH w/ Reflex to FT4 1.78 uIU/mL (0.47-4.68)
== END ==
PROVIDERS: Family Provider Family Medicine; PCP Family Medicine; Referring Provider Family Medicine; Visit Provider Family Medicine
DX: E04.2 Nontoxic multinodular goiter (principal); E03.9 Hypothyroidism, unspecified; I10 Essential (primary) hypertension; N18.31 Chronic kidney disease, stage 3a
CPT/HCPCS: 36415; 76536; 80048; 82043; 82570; 84443

== ENCOUNTER → 2020-07-19 10:41 | Outpatient (CLI) | payer MEDICARE, SELFPAY ==
[2020-07-19] MEDS: COVID-19 VACC #2, MRNA(MOD) 100 MCG/0.5 ML VIAL IM (11:00)
== END ==
PROVIDERS: Family Provider Family Medicine; PCP Family Medicine; Visit Provider Internal Medicine
DX: Z23 Encounter for immunization (principal)
CPT/HCPCS: 0012A; 91301

== ENCOUNTER → 2020-10-18 12:36 | Outpatient (CLI) | payer MEDICARE, SELFPAY ==
[2020-10-18 19:48] LABS: BUN Creatinine Ratio 21.7 (6-22); Blood Urea Nitrogen 26 mg/dL (7-17); Calcium 9.2 mg/dL (8.4-10.2); Carbon Dioxide 28 mmol/L (22-32); Chloride 106 mmol/L (98-107); Estimated Glomerular Filt Rate 43.2 mL/min (>60); Glucose 100 mg/dL (80-110); HEMOLYSIS < 15 (0-50); Potassium 4.4 mmol/L (3.4-5.1); Sodium 141 mmol/L (137-145)
[2020-10-18 20:26] LABS: Creatinine Urine Random 194.4 mg/dL
[2020-10-18 20:30] LABS: Microalbumi Creatinin Ratio Ur 61.7 ug/mg CR (<30)
== END ==
PROVIDERS: Family Provider Family Medicine; PCP Family Medicine; Referring Provider Family Medicine; Visit Provider Family Medicine
DX: I10 Essential (primary) hypertension (principal)
CPT/HCPCS: 36415; 80048; 82043; 82570

== ENCOUNTER → 2020-11-02 12:21 | Outpatient (CLI) | payer MEDICARE, SELFPAY ==
--- NOTE | 2020-11-02 12:22 | DI.ECHO.S_ITS ---
[facility] +---------+ : : [address] : [place] : : : : [id number] : : : : Phone: [phone]+ Echocardiogram Report + + :Name: BERNABE VACA Study Date: 11/02/2020 Height: 69 in : :[facility] ReadingLocation: Weight: 220 lb : : Gender: Female BSA: 2.2 m2 : :: 1940 Age: 80 yrs BP: 149/84 mmHg: :Reason For Study: DECREASED EXERCISE TOLERANCE LEG SWELLING : :Ordering Physician: FRANKI, : :BENITO Performed By: Janet Correa : :Referring: BENITO DOAN : + + Interpretation Summary The ejection fraction is estimated to be 60-65%. There is severe biatrial enlargement. There is moderate to severe tricuspid regurgitation. There is moderate mitral regurgitation. The right ventricular systolic pressure is estimated to be at least 47 mmHg based on an estimated right atrial pressure of 8 mm Hg. Procedure: A two-dimensional transthoracic echocardiogram with color flow and Doppler was performed. The study quality was technically adequate. There is no prior echocardiogram noted for this patient. The patient was in sinus rhythm with heart rates between 52-74 bpm during the exam. Left Ventricle: The left ventricle is normal in size and wall thickness. The ejection fraction is estimated to be 60-65%. Left ventricular wall motion is normal. Diastolic function could not be accurately assessed due to atrial fibrillation. Right Ventricle: The right ventricle is normal in size and function. Atria: The left atrium is severely dilated. There is severe biatrial enlargement. The right atrium is severely dilated. There is no Doppler evidence for an interatrial shunt. Mitral Valve: The mitral valve leaflets appear borderline thickened, but open well. There is mild mitral annular calcification. There is moderate mitral regurgitation. Aortic Valve: The aortic valve is not well visualized. The aortic valve opens well. There is no aortic valve stenosis. There is mild aortic regurgitation. Tricuspid Valve: The tricuspid valve leaflets are thin and pliable. There is moderate to severe tricuspid regurgitation. The right ventricular systolic pressure is estimated to be at least 47 mmHg based on an estimated right atrial pressure of 8 mm Hg. Pulmonic Valve: The pulmonic valve is not well seen, but is grossly normal. There is mild pulmonic regurgitation. Great Vessels: The aortic root is normal size. The ascending aorta is mildly enlarged. The IVC is dilated (diameter is greater than 2.1 cm) yet it collapses greater than 50% with a sniff. This suggests a right atrial pressure of 8 mm Hg. Pericardium/ Pleura There is no pericardial effusion. There is no pleural effusion. MMode/2D Measurements & Calculations LVIDd: 5.0 cm LVOT diam: 2.1 cm LVIDs: 3.2 cm Ao root diam: 2.8 cm FS: 35.7 % asc Aorta Diam: 3.9 cm IVSd: 1.0 cm Ao Arch Diam (Prox Trans): 3.3 cm LVPWd: 0.93 cm LV plascencia. diameter/BSA (cm/m^2): 2.3 LV sys. diameter/BSA (cm/m^2): 1.5 LA A2 area: 31.7 cm2 RA long axis: 7.0 cm LA A4 area: 30.1 cm2 RA area: 31.4 cm2 LA length (vol): 6.8 cm RA vol: 119.5 ml LA vol: 118.6 ml RA : 55.6 ml/m2 LA vol index: 55.1 ml/m2 IVC diam: 2.2 cm RVD1 (basal): 3.3 cm TAPSE: 2.1 cm Doppler Measurements & Calculations Ao V2 max: 130.1 cm/sec LVOT Max Roger: 81.5 cm/sec Ao V2 mean: 85.8 cm/sec LV V1 max P.7 mmHg Ao max P.8 mmHg LV V1 VTI: 20.2 cm Ao mean P.4 mmHg LINDA(I,D): 2.4 cm2 Ao V2 VTI: 28.3 cm LINDA(V,D): 2.1 cm2 sev ratio: 0.71 LINDA indexed to BSA (cm^2/m^2): 1.1 AI P1/2t: 689.7 msec AI dec slope: 185.2 cm/sec2 MV E max roger: 95.5 cm/sec TR max roger: 310.7 cm/sec MV A max roger: 19.4 cm/sec TR max P.6 mmHg MV E/A: 4.9 PA V2 max: 79.3 cm/sec Med Peak E' Roger: 9.8 cm/sec PA V2 mean: 57.8 cm/sec E/E' med: 9.8 PA mean P.5 mmHg Lat Peak E' Roger: 12.4 cm/sec PA pr(Accel): 24.2 mmHg E/E' lat: 7.7 E/e' average: 8.7 MV dec time: 0.22 sec SV([facility]): 66.7 ml Reading Physician:02:27 PM
== END ==
PROVIDERS: Family Provider Family Medicine; PCP Family Medicine; Referring Provider Family Medicine; Visit Provider Family Medicine
DX: I08.3 Combined rheumatic disorders of mitral, aortic and tricuspid valves (principal); I77.89 Other specified disorders of arteries and arterioles; I48.0 Paroxysmal atrial fibrillation; R60.9 Edema, unspecified
CPT/HCPCS: 93306

== ENCOUNTER → 2021-01-10 13:10 | Outpatient (CLI) | payer MEDICARE, SELFPAY ==
--- NOTE | 2021-01-10 13:11 | DI.US.S_ITS ---
PROCEDURE: US THYROID INDICATIONS: THYROID NODULE SIX MONTH FOLLOW UP TECHNIQUE: Real-time scanning was performed of the thyroid gland, with image documentation. COMPARISON: [facility], US, US THYROID, 07/07/2020, 13:56. FINDINGS: Right: Thyroid lobe measures 5.5 x 2.2 x 1.8 cm, and is homogeneous in echotexture. Left: Thyroid lobe measures 5.3 x 2.7 x 2.7 cm, and is homogenous in echotexture. Isthmus: 15.3 mm thick. Nodule number: 1 Location: Right midpole Size: 1.2 x 1.3 x 1.2 cm, previously 1.3 x 1.3 x 1.1 cm Composition: Solid Echogenicity: Hyperechoic Shape: wider than tall. Margins: Smooth Echogenic foci: None Total points: 3 ACR TI-RADS category: 3. Mildly suspicious. Nodule number: 2 Location: Left inferior Size: 2.2 x 2.1 x 2.1 cm, previously 2.2 x 2.0 x 2.1 cm Composition: Solid Echogenicity: Hyperechoic/isoechoic Shape: Taller than wide Margins: Smooth Echogenic foci: None Total points: 3. ACR TI-RADS category: 3. Mildly suspicious. Nodule number: 3 Location: Left midpole/lateral Size: 1.8 x 1.6 x 2.1 cm previously 2.0 x 1.4 cm Composition: Solid Echogenicity: Hyperechoic/isoechoic Shape: wider than tall. Margins: Smooth Echogenic foci: None Total points: 6 ACR TI-RADS category: 4. Moderately suspicious Nodule number: 4 Location: Left midpole/medially Size: 1.6 x 1.5 x 1.1 cm not previously seen Composition: Solid Echogenicity: Hypoechoic/isoechoic Shape: wider than tall. Margins: Smooth Echogenic foci: None Total points: 3. ACR TI-RADS category: 3. Mildly suspicious. IMPRESSION: 1. Left midpole TIRADS 4 lesion is moderately suspicious but is stable in size compared to 07/07/2020. Recommend continued annual follow-up or FNA. 2. Additional bilateral mildly suspicious TIRADS 3 lesions. Recommend continued annual follow-up. ACR TI-RADS definitions and recommendations: TI-RADS 1 (benign): 0 points. FNA not needed. TI-RADS 2 (not suspicious): 2 points. FNA not needed. TI-RADS 3 (mildly suspicious): 3 points. * FNA if 2.5 cm or larger, follow up if 1.5 cm or larger (at 1, 3, and 5 years). TI-RADS 4 (moderately suspicious): 4-6 points. * FNA if 1.5 cm or larger, follow up if 1 cm or larger (at 1, 2, 3, and 5 years). TI-RADS 5 (highly suspicious): 7 points or more. * FNA if 1 cm or larger, follow up if 0.5 cm or larger (every year for 5 years). Dictated by: Shreyas Self M.D. on 01/10/2021 at 14:53 Approved by: Shreyas Self M.D. on 01/10/2021 at 15:02
== END ==
PROVIDERS: Family Provider Family Medicine; PCP Family Medicine; Referring Provider Family Medicine; Visit Provider Family Medicine
DX: E04.2 Nontoxic multinodular goiter (principal); E03.9 Hypothyroidism, unspecified; E04.1 Nontoxic single thyroid nodule
CPT/HCPCS: 76536

== ENCOUNTER → 2021-03-15 10:24 | Outpatient (CLI) | payer MEDICARE, SELFPAY ==
--- NOTE | 2021-03-15 10:27 | DI.NM.S_ITS ---
PROCEDURE: NM PAM PERF SPECT R&S PHARM Rest and pharmacological stress myocardial perfusion SPECT with gated imaging and ejection fraction RADIOPHARMACEUTICAL: 26.3 mCi Tc-99m tetrafosmin IV at rest and 25.7 mCi Tc-99m tetrafosmin IV at peak effect of pharmacological stress. [id number] was performed. INDICATIONS: Other chest pain TECHNIQUE: Radiopharmaceutical was injected at peak stress test, and also at rest. SPECT images were obtained. SPECT myocardial perfusion images were displayed in short axis, horizontal long axis, and vertical long axis views. Gated images were reviewed using [email or web address] software. COMPARISON: None. CARDIAC STRESS: A pharmacologic stress test was performed under the supervision of an attending staff, using an infusion of lexiscan. Hemodynamic data: There is normal blood pressure and heart rate response to pharmacologic stress. Symptoms: The patient denied anginal chest pain. Aminophylline: none EKG: Atrial fibrillation at rest. Non diagnostic horizontal ST depressions in the inferior and anterolateral leads with lexiscan; no ectopy. FINDINGS: Raw data: There is good myocardial uptake of radiotracer. No significant motion artifacts. Left ventricle function: Gated images demonstrate normal left ventricular wall thickening. No segmental wall motion abnormalities. No transient ischemic dilation; TID is 1.09 (normal less than 1.3). Left ventricle resting end diastolic volume is 106 mL. Left ventricle stress ejection fraction is 71%; normal range is above 45%. 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 SSS 6, SRS 1. No prone images obtained. 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 SSS 6, SRS 1. No prone images obtained due to patient condition and, thus, artifacts can't be excluded. 2) Normal left ventricular size, wall motion, and systolic function (EF post stress 71%). 3) Non-diagnostic ST changes with lexiscan. 4) No angina during the study. 5) No prior nuclear stress test available for comparison. Dictated by: Silvio Dutta MD on 03/16/2021 at 16:58 Approved by: Silvio Dutta MD on 03/16/2021 at 17:03
[2021-03-15 17:20] LABS: COVID19 -Nasal RAPID Negative (Negative)
== END ==
PROVIDERS: Family Provider Family Medicine; PCP Family Medicine; Referring Provider Internal Medicine; Visit Provider Internal Medicine
DX: R94.39 Abnormal result of other cardiovascular function study (principal); R07.89 Other chest pain; Z20.822 Contact with and (suspected) exposure to COVID-19
CPT/HCPCS: 78452; 87635; 93017; A9502; J2785

== ENCOUNTER → 2021-04-24 13:07 | Outpatient (ROUT) | payer MEDICARE, SELFPAY ==
[2021-04-24 13:31] LABS: Appearance Urine UA CLOUDY; Bilirubin Urine UA 1+ (NEGATIVE); Glucose Urine UA 1+ g/dL (Negative); Ketones Urine UA TRACE (NEGATIVE); Leukocyte Esterase Urine UA 2+ (NEGATIVE); Nitrite Urine UA POSITIVE (Negative); Occult Blood Urine UA 3+ (Negative); Protein Urine UA 2+ (Negative)
[2021-04-24 13:37] LABS: Color Urine UA ORANGE
[2021-04-24 13:49] LABS: Ictotest Urine Negative (Negative)
[2021-04-24 13:50] LABS: Amorphous Sediment Urine 1+; Bacteria Urine Many (>30); Culture Indicated Urine Specimen Cultured; Mucus Urine 1+ (Negative); RBC Urine 1-5/HPF (0-5/HPF); Squamous Epithelial Cell Urine 5-10 /HPF (0-5/HPF); WBC Urine 30-100/HPF (0-5/HPF)
== END ==
PROVIDERS: Family Provider Family Medicine; PCP Family Medicine; Visit Provider Urology
DX: R39.9 Unspecified symptoms and signs involving the genitourinary system (principal)
CPT/HCPCS: 81001; 87077; 87086; 87186

== ENCOUNTER → 2021-06-20 17:02 | Outpatient (CLI) | payer MEDICARE, SELFPAY ==
[2021-06-20 17:41] LABS: Appearance Urine UA CLEAR; Bilirubin Urine UA NEGATIVE (NEGATIVE); Color Urine UA YELLOW; Glucose Urine UA NEGATIVE (Negative); Ketones Urine UA NEGATIVE (NEGATIVE); Leukocyte Esterase Urine UA TRACE (NEGATIVE); Nitrite Urine UA POSITIVE (Negative); Occult Blood Urine UA 3+ (Negative); Protein Urine UA TRACE (Negative); Specific Gravity Urine UA 1.015 (1.000-1.035); Urobilinogen Urine UA 0.2 E.U./dL (0.2)
[2021-06-20 17:49] LABS: RBC Urine 5-10/HPF (0-5/HPF); WBC Urine 5-10/HPF (0-5/HPF)
[2021-06-20 17:50] LABS: Bacteria Urine Few (2-10); Culture Indicated Urine Specimen Cultured
== END ==
PROVIDERS: Family Provider Family Medicine; PCP Family Medicine; Referring Provider Family Medicine; Visit Provider Family Medicine
DX: R30.0 Dysuria (principal)
CPT/HCPCS: 81001; 87077; 87086; 87186

== ENCOUNTER → 2021-09-20 17:05 | Outpatient (CLI) | payer MEDICARE, SELFPAY ==
[2021-09-20 18:38] LABS: Add Manual Diff / Slide Review NO; Basophils Absolute Auto 100 /uL (0-100); Basophils Percent Auto 1.1 % (0-2); Eosinophils Absolute Auto 200 /uL (0-450); Eosinophils Percent Auto 2.9 % (2-4); Hematocrit 38.5 % (36-46); Lymphocytes Absolute Auto 1300 /uL (1100-4500); Lymphocytes Percent Auto 18.6 % (25-40); Mean Corpuscular HGB Conc 33.6 % (30-36); Mean Corpuscular Hemoglobin 31.2 PG (26-34); Mean Corpuscular Volume 92.7 fL (80-100); Monocytes Absolute Auto 500 /uL (0-900); Monocytes Percent Auto 7.2 % (3-14); Neutrophils Absolute Auto 4900 /uL (1500-7000); Neutrophils Percent Auto 70.2 % (50-75); Platelet Count 199 X10^3/uL (150-400); Red Blood Cell Count 4.16 X10^6/uL (4.0-5.2); Red Cell Distribution Width 14.3 % (11.6-14.8); White Blood Cell Count 6.9 X10^3/uL (4.5-11.0)
[2021-09-20 22:05] LABS: Carbon Dioxide 29 mmol/L (22-32); Chloride 105 mmol/L (98-107); Potassium 4.1 mmol/L (3.4-5.1); Sodium 141 mmol/L (137-145)
[2021-09-20 22:06] LABS: Alanine Aminotransferase 13 IU/L (<35); Albumin 4.1 g/dL (3.5-5.0); Albumin Globulin Ratio 1.2 (1.0-2.8); Alkaline Phosphatase 63 U/L (38-126); Aspartate Aminotransferase 29 IU/L (14-36); BUN Creatinine Ratio 20.6 (6-22); Bilirubin Total 0.6 mg/dL (0.2-1.3); Blood Urea Nitrogen 26 mg/dL (7-17); Calcium 8.4 mg/dL (8.4-10.2); Estimated Glomerular Filt Rate 43 mL/min (>60); Globulin 3.4 g/dL (1.7-4.1); Glucose 99 mg/dL (80-110); HEMOLYSIS < 15 (0-50); Total Protein 7.5 g/dL (6.3-8.2)
[2021-09-20 22:13] LABS: Vitamin D 25 Hydroxy (D3) 20.3 ng/mL (30.0-100.0)
[2021-09-23 18:05] LABS: TSH w/ Reflex to FT4 3.28 uIU/mL (0.47-4.68)
== END ==
PROVIDERS: Family Provider Family Medicine; PCP Pediatrics; Referring Provider Pediatrics; Visit Provider Pediatrics
DX: E03.9 Hypothyroidism, unspecified (principal); I10 Essential (primary) hypertension; E87.5 Hyperkalemia; N18.31 Chronic kidney disease, stage 3a; R30.0 Dysuria; R60.9 Edema, unspecified
CPT/HCPCS: 36415; 80053; 82306; 84443; 85025

== ENCOUNTER → 2021-09-21 13:59 | Outpatient (CLI) | payer MEDICARE, SELFPAY ==
[2021-09-21 14:40] LABS: Appearance Urine UA CLOUDY; Bilirubin Urine UA NEGATIVE (NEGATIVE); Color Urine UA YELLOW; Glucose Urine UA NEGATIVE (Negative); Ketones Urine UA NEGATIVE (NEGATIVE); Leukocyte Esterase Urine UA 2+ (NEGATIVE); Nitrite Urine UA POSITIVE (Negative); Occult Blood Urine UA 3+ (Negative); Protein Urine UA TRACE (Negative); Urobilinogen Urine UA 0.2 E.U./dL (0.2)
[2021-09-21 14:53] LABS: RBC Urine 30-100/HPF (0-5/HPF); WBC Urine >100/HPF (0-5/HPF)
[2021-09-21 14:54] LABS: Bacteria Urine Many (>30); Culture Indicated Urine Specimen Cultured; Squamous Epithelial Cell Urine 1-5 /HPF (0-5/HPF)
== END ==
PROVIDERS: Family Provider Family Medicine; PCP Pediatrics; Referring Provider Pediatrics; Visit Provider Pediatrics
DX: E03.9 Hypothyroidism, unspecified (principal); E87.5 Hyperkalemia; I10 Essential (primary) hypertension; N18.31 Chronic kidney disease, stage 3a; R30.0 Dysuria; R60.9 Edema, unspecified
CPT/HCPCS: 81001; 87077; 87086; 87186

== ENCOUNTER → 2022-01-31 12:16 | Outpatient (CLI) | payer MEDICARE, SELFPAY ==
[2022-01-31 13:00] LABS: Color Urine UA ORANGE
[2022-01-31 13:44] LABS: Appearance Urine UA CLOUDY
[2022-01-31 13:46] LABS: Bacteria Urine Moderate (10-30); Culture Indicated Urine Specimen Cultured; RBC Urine 10-30/HPF (0-5/HPF); Squamous Epithelial Cell Urine 5-10 /HPF (0-5/HPF); WBC Urine >100/HPF (0-5/HPF)
== END ==
PROVIDERS: Family Provider Family Medicine; PCP Pediatrics; Referring Provider Family Medicine; Visit Provider Family Medicine
DX: R30.0 Dysuria (principal)
CPT/HCPCS: 81001; 87077; 87086; 87186

== ENCOUNTER → 2022-02-07 12:16 | Outpatient (CLI) | payer MEDICARE, SELFPAY ==
--- NOTE | 2022-02-07 12:19 | DI.US.S_ITS ---
PROCEDURE: US THYROID INDICATIONS: F/U thyroid nodules. TECHNIQUE: Real-time scanning was performed of the thyroid gland, with image documentation. COMPARISON: [facility], US, US THYROID, 01/10/2021, 13:26. FINDINGS: Right: Thyroid lobe measures 5 x 1.9 x 2.7 cm, and is heterogeneous in echotexture. Left: Thyroid lobe measures 5.2 x 3 x 2.2 cm, and is heterogeneous in echotexture. Isthmus: 9.7 mm thick. Nodule number: 1 Location: Mid pole right thyroid lobe Size: 1.4 x 1.1 x 1.3 cm, previously 1.3 x 1.2 x 1.2 cm. Composition: Solid Echogenicity: Hyperechoic Shape: Wider than tall Margins: Smooth Echogenic foci: Non Total points: 3 ACR TI-RADS category: Mildly suspicious. Nodule number: 2 Location: Lower pole left thyroid lobe Size: 2.3 x 2.2 x 2 cm, previously 2.2 x 2.1 x 2.1 cm. Composition: Solid Echogenicity: Isoechoic to hyperechoic Shape: Wider than tall Margins: Smooth Echogenic foci: None Total points: 3 ACR TI-RADS category: Mildly suspicious. Nodule number: 3 Location: Mid pole of left thyroid lobe. Size: 1.7 x 1.8 x 1.6 cm, previously 1.6 x 1.8 x 2.1 cm. Composition: Solid Echogenicity: Isodose to hyperechoic Shape: Wider than tall Margins: Smooth Echogenic foci: Non Total points: 3 ACR TI-RADS category: Mildly suspicious. Nodule number: 4 Location: Mid pole of left thyroid lobe medial aspect. Size: 2 x 1.1 x 1.7 cm, previously 1.6 x 1.5 x 1.1 cm. Composition: Solid Echogenicity: Hyperechoic Shape: Wider than tall Margins: Smooth Echogenic foci: None Total points: 3 ACR TI-RADS category: Mildly suspicious IMPRESSION: Bilateral mildly suspicious thyroid nodules essentially unchanged in size and appearance from prior study. Continued sonographic follow-up is recommended. ACR TI-RADS definitions and recommendations: TI-RADS 1 (benign): 0 points. FNA not needed. TI-RADS 2 (not suspicious): 2 points. FNA not needed. TI-RADS 3 (mildly suspicious): 3 points. * FNA if 2.5 cm or larger, follow up if 1.5 cm or larger (at 1, 3, and 5 years). TI-RADS 4 (moderately suspicious): 4-6 points. * FNA if 1.5 cm or larger, follow up if 1 cm or larger (at 1, 2, 3, and 5 years). TI-RADS 5 (highly suspicious): 7 points or more. * FNA if 1 cm or larger, follow up if 0.5 cm or larger (every year for 5 years). Dictated by: Branden Sanchez M.D. on 02/07/2022 at 15:17 Approved by: Branden Sanchez M.D. on 02/07/2022 at 15:20
== END ==
PROVIDERS: Family Provider Family Medicine; PCP Family Medicine; Referring Provider Family Medicine; Visit Provider Family Medicine
DX: E04.2 Nontoxic multinodular goiter (principal)
CPT/HCPCS: 76536

== ENCOUNTER → 2022-02-15 12:22 | Outpatient (CLI) | payer MEDICARE, SELFPAY ==
[2022-02-15 13:56] LABS: Appearance Urine UA CLEAR; Bilirubin Urine UA NEGATIVE (NEGATIVE); Color Urine UA YELLOW; Glucose Urine UA NEGATIVE (Negative); Ketones Urine UA NEGATIVE (NEGATIVE); Leukocyte Esterase Urine UA NEGATIVE (NEGATIVE); Nitrite Urine UA NEGATIVE (Negative); Occult Blood Urine UA 3+ (Negative); Protein Urine UA NEGATIVE (Negative); Urobilinogen Urine UA 0.2 E.U./dL (0.2)
[2022-02-15 14:03] LABS: pH Urine UA 5.5 (4.5-8.0)
[2022-02-15 14:04] LABS: Amorphous Sediment Urine 1+; Bacteria Urine None Seen; Culture Indicated Urine Cult Not Indicated; Mucus Urine 1+ (Negative); RBC Urine 5-10/HPF (0-5/HPF); Squamous Epithelial Cell Urine 1-5 /HPF (0-5/HPF); WBC Urine 1-5/HPF (0-5/HPF)
== END ==
PROVIDERS: Family Provider Family Medicine; PCP Family Medicine; Referring Provider Family Medicine; Visit Provider Family Medicine
DX: R39.9 Unspecified symptoms and signs involving the genitourinary system (principal)
CPT/HCPCS: 81001

== ENCOUNTER → 2022-04-09 14:15 | Outpatient (CLI) | payer MEDICARE, SELFPAY | PROVIDERS: Family Provider Family Medicine; PCP Family Medicine; Visit Provider Family Medicine | DX: N39.0 Urinary tract infection, site not specified (principal) | CPT/HCPCS: 87086 ==

== ENCOUNTER → 2022-04-09 14:59 | Outpatient (CLI) | payer MEDICARE, SELFPAY ==
[2022-04-09 15:34] LABS: Alanine Aminotransferase 24 IU/L (<35); Albumin 3.7 g/dL (3.5-5.0); Albumin Globulin Ratio 0.9 (1.0-2.8); Alkaline Phosphatase 83 U/L (38-126); Aspartate Aminotransferase 28 IU/L (14-36); BUN Creatinine Ratio 18.7 (6-22); Bilirubin Total 0.5 mg/dL (0.2-1.3); Blood Urea Nitrogen 29 mg/dL (7-17); Calcium 9.5 mg/dL (8.4-10.2); Carbon Dioxide 31 mmol/L (22-32); Chloride 95 mmol/L (98-107); Estimated Glomerular Filt Rate 33 mL/min (>60); Globulin 3.9 g/dL (1.7-4.1); Glucose 103 mg/dL (80-110); HEMOLYSIS < 15 (0-50); Potassium 3.6 mmol/L (3.4-5.1); Sodium 137 mmol/L (137-145); Total Protein 7.6 g/dL (6.3-8.2)
== END ==
PROVIDERS: Family Provider Family Medicine; PCP Family Medicine; Referring Provider Family Medicine; Visit Provider Family Medicine
DX: N39.0 Urinary tract infection, site not specified (principal); N18.31 Chronic kidney disease, stage 3a; I12.9 Hypertensive chronic kidney disease with stage 1 through stage 4 chronic kidney disease, or unspecified chronic kidney disease; R60.9 Edema, unspecified
CPT/HCPCS: 36415; 80053; 87077; 87086; 87186

== ENCOUNTER → 2022-04-18 15:41 | Outpatient (CLI) | payer MEDICARE, SELFPAY ==
[2022-04-18 16:16] LABS: Appearance Urine UA CLOUDY; Bilirubin Urine UA NEGATIVE (NEGATIVE); Color Urine UA YELLOW; Glucose Urine UA TRACE g/dL (Negative); Ketones Urine UA NEGATIVE (NEGATIVE); Leukocyte Esterase Urine UA 3+ (NEGATIVE); Nitrite Urine UA POSITIVE (Negative); Occult Blood Urine UA 3+ (Negative); Protein Urine UA TRACE (Negative); Urobilinogen Urine UA 0.2 E.U./dL (0.2)
[2022-04-18 16:22] LABS: pH Urine UA 6.5 (4.5-8.0)
[2022-04-18 16:24] LABS: Bacteria Urine Many (>30); Culture Indicated Urine Specimen Cultured; RBC Urine 1-5/HPF (0-5/HPF); Squamous Epithelial Cell Urine 1-5 /HPF (0-5/HPF); WBC Urine >100/HPF (0-5/HPF)
[2022-04-18 17:09] LABS: Creatinine Urine Random 91.8 mg/dL
[2022-04-18 17:13] LABS: Microalbumin Urine Random 7.9 mg/dL (0-1.6)
== END ==
PROVIDERS: Family Provider Family Medicine; PCP Family Medicine; Referring Provider Family Medicine; Visit Provider Family Medicine
DX: I10 Essential (primary) hypertension (principal); N18.31 Chronic kidney disease, stage 3a; N39.0 Urinary tract infection, site not specified; R60.9 Edema, unspecified; R39.9 Unspecified symptoms and signs involving the genitourinary system
CPT/HCPCS: 81001; 82043; 82570; 87077; 87086; 87186

== ENCOUNTER → 2022-05-16 12:00 | Outpatient (CLI) | payer MEDICARE, SELFPAY ==
[2022-05-16 14:12] LABS: Cholesterol 106 mg/dL (140-199); HDL Cholesterol 64 mg/dL (40-60); LDL Cholesterol Calculated 23 mg/dL (<100); Magnesium 1.6 mg/dL (1.6-2.3); Triglycerides 97 mg/dL (35-150)
[2022-05-16 14:29] LABS: Free T4, Direct Thyroxine 1.27 ng/dL (0.78-2.19)
[2022-05-17 07:03] LABS: Thyroid Peroxidase Antibodies 184 IU/mL (0-34)
[2022-05-17 16:08] LABS: Anti Thyroglobulin Antibody 21.3 IU/mL (0.0-0.9)
== END ==
PROVIDERS: Family Provider Family Medicine; PCP Family Medicine; Referring Provider Nurse Practitioner Family; Visit Provider Nurse Practitioner Family
DX: I10 Essential (primary) hypertension (principal); E03.9 Hypothyroidism, unspecified; R94.39 Abnormal result of other cardiovascular function study
CPT/HCPCS: 36415; 80061; 83735; 84439; 84443; 84481; 86376; 86800

== ENCOUNTER → 2022-07-08 09:14 | Outpatient (CLI) | payer MEDICARE, SELFPAY ==
[2022-07-08 12:03] LABS: Appearance Urine UA SL CLOUDY; Bilirubin Urine UA 1+ (NEGATIVE); Glucose Urine UA NEGATIVE (Negative); Ketones Urine UA NEGATIVE (NEGATIVE); Leukocyte Esterase Urine UA 2+ (NEGATIVE); Nitrite Urine UA POSITIVE (Negative); Occult Blood Urine UA 2+ (Negative); Protein Urine UA 2+ (Negative); Specific Gravity Urine UA 1.025 (1.000-1.035)
[2022-07-08 12:21] LABS: Color Urine UA Amber
[2022-07-08 12:22] LABS: Amorphous Sediment Urine 1+; Bacteria Urine Moderate (10-30); Culture Indicated Urine Specimen Cultured; Ictotest Urine Positive (Negative); RBC Urine 1-5/HPF (0-5/HPF); Squamous Epithelial Cell Urine 0-1 /HPF (0-5/HPF); WBC Urine 10-30/HPF (0-5/HPF)
== END ==
PROVIDERS: Family Provider Family Medicine; PCP Family Medicine; Referring Provider Internal Medicine; Visit Provider Internal Medicine
DX: N95.2 Postmenopausal atrophic vaginitis (principal); R39.9 Unspecified symptoms and signs involving the genitourinary system
CPT/HCPCS: 81001; 87077; 87086; 87186

== ENCOUNTER → 2022-08-05 15:06 | Outpatient (CLI) | payer MEDICARE, SELFPAY ==
[2022-08-05 17:15] LABS: Appearance Urine UA SL CLOUDY; Bilirubin Urine UA NEGATIVE (NEGATIVE); Color Urine UA YELLOW; Glucose Urine UA NEGATIVE (Negative); Ketones Urine UA NEGATIVE (NEGATIVE); Leukocyte Esterase Urine UA 2+ (NEGATIVE); Nitrite Urine UA POSITIVE (Negative); Occult Blood Urine UA 3+ (Negative); Protein Urine UA 1+ (Negative); Specific Gravity Urine UA 1.025 (1.000-1.035)
[2022-08-05 17:32] LABS: pH Urine UA 5.5 (4.5-8.0)
[2022-08-05 17:35] LABS: Bacteria Urine Few (2-10); Culture Indicated Urine Specimen Cultured; RBC Urine 10-30/HPF (0-5/HPF); Squamous Epithelial Cell Urine 5-10 /HPF (0-5/HPF); WBC Urine >100/HPF (0-5/HPF)
== END ==
PROVIDERS: Family Provider Family Medicine; PCP Family Medicine; Referring Provider Internal Medicine; Visit Provider Internal Medicine
DX: N39.0 Urinary tract infection, site not specified (principal)
CPT/HCPCS: 81001; 87077; 87086; 87186

== ENCOUNTER → 2022-08-22 13:20 | Outpatient (CLI) | payer MEDICARE, SELFPAY ==
[2022-08-22 13:33] LABS: Appearance Urine UA SL CLOUDY; Bilirubin Urine UA NEGATIVE (NEGATIVE); Color Urine UA YELLOW; Glucose Urine UA NEGATIVE (Negative); Ketones Urine UA NEGATIVE (NEGATIVE); Leukocyte Esterase Urine UA 2+ (NEGATIVE); Nitrite Urine UA POSITIVE (Negative); Occult Blood Urine UA 3+ (Negative); Protein Urine UA TRACE (Negative); Specific Gravity Urine UA >=1.030 (1.000-1.035); Urobilinogen Urine UA 0.2 E.U./dL (0.2)
[2022-08-22 13:47] LABS: pH Urine UA 5.5 (4.5-8.0)
[2022-08-22 13:49] LABS: RBC Urine 10-30/HPF (0-5/HPF); WBC Urine 30-100/HPF (0-5/HPF)
[2022-08-22 13:50] LABS: Bacteria Urine Many (>30); Culture Indicated Urine Specimen Cultured; Squamous Epithelial Cell Urine 1-5 /HPF (0-5/HPF)
== END ==
PROVIDERS: Family Provider Family Medicine; PCP Family Medicine; Referring Provider Specialist; Visit Provider Specialist
DX: N39.0 Urinary tract infection, site not specified (principal); R31.9 Hematuria, unspecified; R32 Unspecified urinary incontinence; R35.1 Nocturia; R39.9 Unspecified symptoms and signs involving the genitourinary system
CPT/HCPCS: 81001; 87077; 87086; 87186

== ENCOUNTER → 2023-01-03 12:21 | Outpatient (CLI) | payer MEDICARE, SELFPAY ==
[2023-01-03 12:53] LABS: Appearance Urine UA CLOUDY; Bilirubin Urine UA NEGATIVE (NEGATIVE); Color Urine UA YELLOW; Glucose Urine UA NEGATIVE (Negative); Ketones Urine UA NEGATIVE (NEGATIVE); Leukocyte Esterase Urine UA 2+ (NEGATIVE); Nitrite Urine UA NEGATIVE (Negative); Occult Blood Urine UA 3+ (Negative); Protein Urine UA TRACE (Negative); Urobilinogen Urine UA 0.2 E.U./dL (0.2)
[2023-01-03 13:16] LABS: Bacteria Urine Moderate (10-30); Culture Indicated Urine Specimen Cultured; RBC Urine 10-30/HPF (0-5/HPF); Squamous Epithelial Cell Urine 1-5 /HPF (0-5/HPF); WBC Urine >100/HPF (0-5/HPF)
== END ==
PROVIDERS: PCP Family Medicine; Referring Provider Specialist; Visit Provider Specialist
DX: N39.0 Urinary tract infection, site not specified (principal)
CPT/HCPCS: 81001; 87086

== ENCOUNTER → 2023-02-11 15:55 | Outpatient (CLI) | payer MEDICARE, SELFPAY ==
[2023-02-11 17:57] LABS: Appearance Urine UA CLOUDY; Bilirubin Urine UA 1+ (NEGATIVE); Color Urine UA YELLOW; Glucose Urine UA NEGATIVE (Negative); Ketones Urine UA TRACE (NEGATIVE); Leukocyte Esterase Urine UA 2+ (NEGATIVE); Nitrite Urine UA POSITIVE (Negative); Occult Blood Urine UA 2+ (Negative); Protein Urine UA 1+ (Negative); Specific Gravity Urine UA >=1.030 (1.000-1.035); Urobilinogen Urine UA 0.2 E.U./dL (0.2)
[2023-02-11 18:18] LABS: pH Urine UA 5.5 (4.5-8.0)
[2023-02-11 18:19] LABS: Bacteria Urine Many (>30); Culture Indicated Urine Specimen Cultured; Ictotest Urine Negative (Negative); RBC Urine 1-5/HPF (0-5/HPF); Renal Epithelial Cells Urine 1-5/HPF (0-1/HPF); Squamous Epithelial Cell Urine 0-1 /HPF (0-5/HPF); WBC Urine >100/HPF (0-5/HPF)
== END ==
PROVIDERS: PCP Family Medicine; Referring Provider Family Medicine; Visit Provider Family Medicine
DX: R32 Unspecified urinary incontinence (principal); R39.9 Unspecified symptoms and signs involving the genitourinary system; N39.0 Urinary tract infection, site not specified
CPT/HCPCS: 81001; 87077; 87086; 87186

== ENCOUNTER → 2023-02-20 12:03 | Outpatient (CLI) | payer MEDICARE, SELFPAY | PROVIDERS: PCP Family Medicine; Visit Provider Nurse Practitioner Family | DX: R30.0 Dysuria (principal) | CPT/HCPCS: 87077; 87086; 87186 ==

== ENCOUNTER → 2023-03-12 12:39 | Outpatient (CLI) | payer MEDICARE, SELFPAY ==
[2023-03-12 14:21] LABS: Appearance Urine UA CLOUDY; Bilirubin Urine UA NEGATIVE (NEGATIVE); Color Urine UA YELLOW; Glucose Urine UA NEGATIVE (Negative); Ketones Urine UA NEGATIVE (NEGATIVE); Leukocyte Esterase Urine UA 2+ (NEGATIVE); Nitrite Urine UA POSITIVE (Negative); Occult Blood Urine UA 2+ (Negative); Protein Urine UA TRACE (Negative); Urobilinogen Urine UA 0.2 E.U./dL (0.2); pH Urine UA 6.5 (4.5-8.0)
[2023-03-12 14:32] LABS: RBC Urine 0-1/HPF (0-5/HPF)
[2023-03-12 14:33] LABS: Bacteria Urine Many (>30); Culture Indicated Urine Specimen Cultured; Squamous Epithelial Cell Urine 0-1 /HPF (0-5/HPF); WBC Urine >100/HPF (0-5/HPF)
== END ==
PROVIDERS: PCP Family Medicine; Referring Provider Family Medicine; Visit Provider Family Medicine
DX: R32 Unspecified urinary incontinence (principal); R39.9 Unspecified symptoms and signs involving the genitourinary system; N39.0 Urinary tract infection, site not specified
CPT/HCPCS: 81001; 87077; 87086; 87186

== ENCOUNTER → 2023-05-13 12:52 | Outpatient (CLI) | payer MEDICARE, SELFPAY ==
--- NOTE | 2023-05-13 12:59 | DI.CT.S_ITS ---
PROCEDURE: CT KIDNEY URETER BLADDER (KUB) INDICATIONS: Blood in urine TECHNIQUE: Axial sections were acquired from the lung bases to the pubic symphysis. Coronal and sagittal reformats were performed. For radiation dose reduction, the following was used: automated exposure control, adjustment of mA and/or kV according to patient size. COMPARISON: None. FINDINGS: Image quality: Diagnostic. Lower Chest: Mild cardiomegaly. URINARY: Right Kidney: No stones or hydronephrosis. Right Ureter: No hydroureter. Left Kidney: Focal areas of cortical volume loss are consistent with chronic insults. 2 mm nonobstructing stone, lower pole. Left Ureter: No hydroureter. Bladder: Normal wall thickness. No stones. ABDOMEN: Liver: No contour-deforming solid mass. Gallbladder: There is mild gallbladder wall thickening. There is a question a polypoid mass versus noncalcified stones. Biliary ducts: No biliary dilation. Pancreas: No ductal dilation. Spleen: Size is within normal limits. Adrenal Glands: No adrenal nodules. Stomach and Bowel: Normal colonic caliber, without significant wall thickening. Scattered diverticulosis. Peritoneum: No abnormal intraperitoneal fluid. No free air. Ventral Wall: There is rectus diastasis with a large ventral lower wall abdominal defect with nonobstructing bowel extending just below the skin. There is also a upper abdominal large paramidline defect measuring approximately 4.9 cm which contains nonobstructed colon. Abdominal Nodes: No enlarged retroperitoneal or mesenteric lymph nodes. Vessels: Aorta and inferior vena cava are normal in size. PELVIS: Pelvic Organs: Uterus is surgically absent. No adnexal masses are.. Pelvic Nodes: Unremarkable. Miscellaneous: No inguinal hernias are seen. Bones: Chronic compressions of T12, L1, and L2. Diffuse osteopenia. No lytic or blastic bony lesions identified. IMPRESSION: 1. 2 mm nonobstructing left lower pole renal stone. Focal areas of left renal cortical volume loss. No hydronephrosis. No ureteral stone. 2. Abnormal gallbladder with wall thickening question of polypoid mass versus noncalcified stones. Recommend right upper quadrant ultrasound as initial workup. 3. Large upper abdominal ventral abdominal wall defect (rectus diastasis) with nonobstructed colon herniating through the defect. Lower abdominal rectus diastasis with nonobstructed bowel extending to just below the skin. 4. Multiple chronic compression fractures. Comment: Recommend right upper quadrant ultrasound to further evaluate the gallbladder. Dictated by: Melvin Sood M.D. on 05/13/2023 at 15:41 Approved by: Melvin Sood M.D. on 05/13/2023 at 15:50
== END ==
LOC: CT 12:53
PROVIDERS: PCP Family Medicine; Referring Provider Specialist; Visit Provider Specialist
DX: N20.0 Calculus of kidney (principal); R31.9 Hematuria, unspecified; N39.0 Urinary tract infection, site not specified; M62.08 Separation of muscle (nontraumatic), other site; K82.9 Disease of gallbladder, unspecified; M48.55XA Collapsed vertebra, not elsewhere classified, thoracolumbar region, initial encounter for fracture
CPT/HCPCS: 74176

== ENCOUNTER → 2023-05-28 10:18 | Outpatient (CLI) | payer MEDICARE, SELFPAY ==
--- NOTE | 2023-05-28 10:19 | DI.US.S_ITS ---
PROCEDURE: US ABDOMEN LIMITED INDICATIONS: Abnormal gallbladder with wall thickening TECHNIQUE: Real-time focused scanning was performed of the abdomen, with image documentation. COMPARISON: [facility], CT, CT KIDNEY URETER BLADDER (KUB), 05/13/2023, 13:05. FINDINGS: Liver measures 13.4 cm. No focal mass. There mobile areas of increased echogenicity within the gallbladder with shadowing. Wall thickness is at the upper limits of normal measuring 3 mm. No pericholecystic fluid. IMPRESSION: Prominent gallstone with borderline wall thickening. Findings are consistent with cholelithiasis. Cannot exclude developing cholecystitis. Dictated by: Herlinda Zacarias M.D. on 05/28/2023 at 13:08 Approved by: Herlinda Zacarias M.D. on 05/28/2023 at 13:10
[2023-05-28 11:36] LABS: Add Manual Diff / Slide Review NO; Basophils Absolute Auto 100 /uL (0-100); Basophils Percent Auto 1.2 % (0-2); Eosinophils Absolute Auto 200 /uL (0-450); Eosinophils Percent Auto 2.5 % (2-4); Hemoglobin 13.9 g/dL (12.0-16.0); Lymphocytes Absolute Auto 900 /uL (1100-4500); Lymphocytes Percent Auto 14.5 % (25-40); Mean Corpuscular HGB Conc 33.9 % (30-36); Mean Corpuscular Volume 91.5 fL (80-100); Monocytes Absolute Auto 400 /uL (0-900); Monocytes Percent Auto 6.9 % (3-14); Neutrophils Absolute Auto 4700 /uL (1500-7000); Neutrophils Percent Auto 74.9 % (50-75); Platelet Count 201 X10^3/uL (150-400); Red Blood Cell Count 4.48 X10^6/uL (4.0-5.2); Red Cell Distribution Width 14.6 % (11.6-14.8); White Blood Cell Count 6.3 X10^3/uL (4.5-11.0)
[2023-05-28 11:48] LABS: Alanine Aminotransferase 14 IU/L (<35); Albumin 4.2 g/dL (3.5-5.0); Albumin Globulin Ratio 1.4 (1.0-2.8); Alkaline Phosphatase 77 U/L (38-126); Aspartate Aminotransferase 27 IU/L (14-36); BUN Creatinine Ratio 20.7 (6-22); Bilirubin Total 0.9 mg/dL (0.2-1.3); Blood Urea Nitrogen 28 mg/dL (7-17); Calcium 9.3 mg/dL (8.4-10.2); Carbon Dioxide 29 mmol/L (22-32); Chloride 100 mmol/L (98-107); Estimated Glomerular Filt Rate 39 mL/min (>60); Globulin 3.1 g/dL (1.7-4.1); Glucose 88 mg/dL (80-110); HEMOLYSIS < 15 (0-50); Potassium 4.5 mmol/L (3.4-5.1); Sodium 139 mmol/L (137-145); Total Protein 7.3 g/dL (6.3-8.2)
[2023-05-28 12:15] LABS: Thyroid Stimulating Hormone 2.31 uIU/mL (0.47-4.68)
[2023-05-28 18:29] LABS: Creatinine Urine Random 107.1 mg/dL
[2023-05-28 18:34] LABS: Microalbumin Urine Random 1.5 mg/dL (0-1.6)
== END ==
PROVIDERS: PCP Family Medicine; Referring Provider Specialist; Visit Provider Specialist
DX: K80.20 Calculus of gallbladder without cholecystitis without obstruction (principal); R31.9 Hematuria, unspecified; R39.9 Unspecified symptoms and signs involving the genitourinary system; I48.0 Paroxysmal atrial fibrillation; Z79.01 Long term (current) use of anticoagulants; N18.31 Chronic kidney disease, stage 3a; E87.5 Hyperkalemia; I10 Essential (primary) hypertension; E03.9 Hypothyroidism, unspecified; M81.0 Age-related osteoporosis without current pathological fracture
CPT/HCPCS: 36415; 76705; 80053; 82043; 82570; 84443; 85025

== ENCOUNTER → 2024-01-23 13:13 | Outpatient (CLI) | payer MEDICARE, SELFPAY ==
--- NOTE | 2024-01-23 13:14 | DI.US.S_ITS ---
PROCEDURE: US PERIPH VENOUS LOW EXTREM RT INDICATIONS: rt leg swelling and pain r/o DVT TECHNIQUE: Real-time imaging, as well as color and pulse Doppler interrogation, were performed of the lower extremity deep veins from the inguinal ligament to the popliteal fossa, with documentation of the visualized calf veins. COMPARISON: None. FINDINGS: The common femoral, femoral, popliteal, and the visualized calf veins are normally compressible, and free of intraluminal thrombus. Color and pulse Doppler demonstrate normal phasic intraluminal flow. There is normal augmentation response to distal compression maneuver. IMPRESSION: No findings of lower extremity deep venous thrombosis. Dictated by: Mak Fisher M.D. on 01/23/2024 at 13:52 Approved by: Mak Fisher M.D. on 01/23/2024 at 13:52
== END ==
PROVIDERS: PCP Family Medicine; Referring Provider Nurse Practitioner Family; Visit Provider Nurse Practitioner Family
DX: M79.89 Other specified soft tissue disorders (principal); M79.604 Pain in right leg
CPT/HCPCS: 93971